=== PATIENT | female | born 1980 | race Caucasian/White ===

== ENCOUNTER → 2018-06-05 14:25 | Outpatient (CLI) | payer OTHER, MEDICAID, SELFPAY ==
[2018-06-05 15:06] LABS: Add Manual Diff / Slide Review NO; Basophils Percent Auto 0.7 % (0-2); Hematocrit 37.9 % (36-46); Hemoglobin 13.5 g/dL (12.0-16.0); Lymphocytes Percent Auto 23.4 % (25-40); Mean Corpuscular HGB Conc 35.7 % (30-36); Monocytes Percent Auto 5.7 % (3-14); Neutrophils Absolute Auto 7100 /uL (3000-5900); Neutrophils Percent Auto 69.2 % (50-75); Platelet Count 341 X10^3/uL (150-400); Red Blood Cell Count 4.35 X10^6/uL (4.0-5.2); Red Cell Distribution Width 12.6 % (11.6-14.8); White Blood Cell Count 10.3 X10^3/uL (4.5-11.0)
[2018-06-05 15:09] LABS: Appearance Urine UA CLEAR; Bilirubin Urine UA NEGATIVE (NEGATIVE); Color Urine UA YELLOW; Glucose Urine UA NEGATIVE (Normal); Ketones Urine UA 1+ (NEGATIVE); Leukocyte Esterase Urine UA TRACE (NEGATIVE); Nitrite Urine UA Negative (Negative); Occult Blood Urine UA NEGATIVE (Negative); Protein Urine UA NEGATIVE (Negative); Specific Gravity Urine UA 1.015 (1.000-1.035); Urobilinogen Urine UA 0.2 E.U./dL (0.2)
[2018-06-05 15:19] LABS: Bacteria Urine None Seen; RBC Urine None Seen (0-5/HPF)
[2018-06-05 15:23] LABS: Squamous Epithelial Cell Urine 10-30 /HPF; WBC Urine 5-10/HPF (0-5/HPF)
[2018-06-05 16:23] LABS: HIV 1 and 2 Antibody NEGATIVE (NEGATIVE); Hep C Virus Ab w/Reflex Quant NEGATIVE s/c (NEGATIVE); Hepatitis B Surface Antigen NEGATIVE s/c (NEGATIVE)
[2018-06-09 14:17] LABS: HSV1IGG < 0.90 index (< 0.90)
[2018-06-12 08:00] LABS: Rapid Plasma Reagin NON-REACTIVE
== END ==
PROVIDERS: PCP Nurse Practitioner Family; Visit Provider Obstetrics & Gynecology
DX: Z3A.14 14 weeks gestation of pregnancy (principal); Z34.01 Encounter for supervision of normal first pregnancy, first trimester
CPT/HCPCS: 36415; 80055; 81003; 81015; 86695; 86696; 86703; 86787; 86803; 86850; 86900; 86901; 87077; 87086

== ENCOUNTER → 2018-08-21 13:24 | Outpatient (CLI) | payer OTHER, SELFPAY ==
--- NOTE | 2018-08-21 13:25 | DI.US.S_ITS ---
PROCEDURE: US OB >= 14 WEEKS FETUS INDICATIONS: ANATOMY OUTSIDE/PRIOR DATING DATA: Last menstrual period (LMP): 02/25/18. LMP-based estimated date of delivery (LUIS FERNANDO): 12/02/18. First dating scan (date and location): 06/12/18. Estimated date of delivery (LUIS FERNANDO) from first dating scan: 01/04/19. TECHNIQUE: Real-time scanning was performed of the fetus, with image documentation and biometric measurements. Endovaginal scanning: No COMPARISON: [facility], , OB >= 14 WEEKS FETUS, 06/12/2018, 16:01. FINDINGS: General: A single living intrauterine gestation is present. Presentation: Breech. Placenta: Placental position is anterior, without previa. Amniotic fluid index: 13.6 cm, normal range is 5-24 cm. heart rate: 150 beats per minute. Maternal cervical canal: 3.6 cm long. Normal lower limit is 2.5 cm. biometrics: Biparietal diameter: 21 weeks Head circumference: 20 weeks 3 days Abdominal circumference: 21 weeks 1 day Femur length: 20 weeks Estimated gestational age from initial scan: not applicable. Composite gestational age from present scan: 20 weeks 4 days Estimated weight and percentile: 367 g; 49 percentile Measurement variability for biometric dating: +/- 7 days from 14 weeks to 15 weeks 6 days gestation, +/- 10 days from 16 weeks to 21 weeks 6 days gestation, +/- 2 weeks from 22 weeks to 27 weeks 6 days gestation, +/- 3 weeks for 28 weeks gestation or later. weight reference: 4500 g or EFW >90/95% is considered macrosomia or large for gestational age. EFW <10% is small for gestational age. EFW 5% or less is considered intra-uterine growth restriction. Anatomic survey: Neuro: Ventricles are non-dilated at less than 10 mm. Cisterna magna is normal at 3-11 mm. Cerebellum is normal in size and morphology. Nuchal skin fold: Normal at less than 6 mm between 14-21 weeks gestational age. Face: Nose and lips, facial profile are normal. Spine: Not well-seen. Heart: 4-chambered heart is present, with normal ventricular outflow tracts. Diaphragm: Diaphragm is intact. Stomach: Left-sided stomach is present. Kidneys: No hydronephrosis. Normal is less than 5 mm in 2nd trimester, less than 7 mm in 3rd trimester. Cord: 3-vessel cord has orthotopic insertion. Bladder: Normal in size. Extremities: All 4 extremities identified. IMPRESSION: 1. Single living IUP with an estimated gestational age of 20 weeks 4 days. 2. spine not well seen; otherwise normal anatomy. Followup recommended. Dictated by: Michael ESCOBAR Interpreted: Anastasia Ochoa MD on 08/21/2018 at 15:12 Approved by: Anastasia Ochoa M.D. on 08/22/2018 at 9:40
== END ==
PROVIDERS: PCP Nurse Practitioner Family; Visit Provider Obstetrics & Gynecology
DX: Z34.02 Encounter for supervision of normal first pregnancy, second trimester (principal); Z36.89 Encounter for other specified antenatal screening; Z3A.20 20 weeks gestation of pregnancy
CPT/HCPCS: 76811

== ENCOUNTER → 2018-10-12 06:56 | Outpatient (CLI) | payer OTHER, SELFPAY ==
[2018-10-12 08:48] LABS: Hematocrit 35.7 % (36-46)
[2018-10-12 09:15] LABS: GTT (PREG) 1 Hour PP 50gm Dose 134 mg/dL (76-139)
== END ==
PROVIDERS: PCP Nurse Practitioner Family; Visit Provider Obstetrics & Gynecology
DX: Z34.02 Encounter for supervision of normal first pregnancy, second trimester (principal)
CPT/HCPCS: 36415; 82950; 85014; 85018

== ENCOUNTER 2018-10-26 12:52 | Observation (INO) | payer OTHER, SELFPAY ==
[2018-10-26 14:15] LABS: Appearance Urine UA CLEAR; Bilirubin Urine UA NEGATIVE (NEGATIVE); Color Urine UA YELLOW; Glucose Urine UA NEGATIVE (Negative); Ketones Urine UA TRACE (NEGATIVE); Leukocyte Esterase Urine UA NEGATIVE (NEGATIVE); Nitrite Urine UA NEGATIVE (Negative); Occult Blood Urine UA NEGATIVE (Negative); Protein Urine UA NEGATIVE (Negative); Urobilinogen Urine UA 0.2 E.U./dL (0.2); pH Urine UA 6.5 (4.5-8.0)
[2018-10-26] MEDS: CYCLOBENZAPRINE 5 MG TABLET PO (14:46)
== END 2018-10-26 14:50 | disposition home or self-care (01) ==
PROVIDERS: Admitting Provider Obstetrics & Gynecology; PCP Nurse Practitioner Family; Visit Provider Obstetrics & Gynecology
DX: O26.893 Other specified pregnancy related conditions, third trimester (principal); M54.9 Dorsalgia, unspecified; O16.3 Unspecified maternal hypertension, third trimester; Z3A.30 30 weeks gestation of pregnancy
CPT/HCPCS: 59025; 59050; 81003; G0378; G0379

== ENCOUNTER 2018-11-03 13:23 | Outpatient (CLI) | payer OTHER, SELFPAY | END 2018-11-03 14:34 | disposition home or self-care (01) | LOC: OB 11-05 16:52 | PROVIDERS: PCP Nurse Practitioner Family; Visit Provider Obstetrics & Gynecology | DX: O16.3 Unspecified maternal hypertension, third trimester (principal); M54.5 Low back pain; O99.333 Smoking (tobacco) complicating pregnancy, third trimester; Z3A.31 31 weeks gestation of pregnancy | CPT/HCPCS: 59025; G0378; G0379 ==

== ENCOUNTER → 2018-12-04 15:42 | Outpatient (CLI) | payer OTHER, SELFPAY ==
[2018-12-05 12:27] LABS: Strep Grp B PCR NEG for Grp B Strep
== END ==
PROVIDERS: PCP Nurse Practitioner Family; Visit Provider Obstetrics & Gynecology
DX: Z34.03 Encounter for supervision of normal first pregnancy, third trimester (principal)
CPT/HCPCS: 87653

== ENCOUNTER 2018-12-07 09:15 | Observation (INO) | payer OTHER, SELFPAY ==
[2018-12-07 09:28] LABS: Appearance Urine UA CLEAR; Bilirubin Urine UA NEGATIVE (NEGATIVE); Color Urine UA YELLOW; Glucose Urine UA NEGATIVE (Negative); Ketones Urine UA NEGATIVE (NEGATIVE); Leukocyte Esterase Urine UA TRACE (NEGATIVE); Nitrite Urine UA NEGATIVE (Negative); Occult Blood Urine UA NEGATIVE (Negative); Protein Urine UA NEGATIVE (Negative); RBC Urine None Seen (0-5/HPF); Specific Gravity Urine UA 1.015 (1.000-1.035); Urobilinogen Urine UA 0.2 E.U./dL (0.2); pH Urine UA 7.5 (4.5-8.0)
[2018-12-07 09:40] LABS: Bacteria Urine Few (2-10); Culture Indicated Urine Cult Not Indicated; Squamous Epithelial Cell Urine 5-10 /HPF; WBC Urine 1-5/HPF (0-5/HPF)
[2018-12-07] MEDS: MORPHINE 10 MG/ML INJ IM (10:07)
== END 2018-12-07 11:30 | disposition home or self-care (01) ==
PROVIDERS: Admitting Provider Obstetrics & Gynecology; PCP Nurse Practitioner Family; Visit Provider Obstetrics & Gynecology
DX: O16.3 Unspecified maternal hypertension, third trimester (principal); G43.909 Migraine, unspecified, not intractable, without status migrainosus; R10.2 Pelvic and perineal pain
CPT/HCPCS: 59025; 59050; 81001; G0378; G0379; J2270

== ENCOUNTER 2018-12-15 16:14 | Outpatient (CLI) | payer OTHER, MEDICAID, SELFPAY | END 2018-12-15 16:53 | disposition home or self-care (01) | LOC: OB 12-17 10:33 | PROVIDERS: PCP Nurse Practitioner Family; Visit Provider Obstetrics & Gynecology | DX: O36.8130 Decreased fetal movements, third trimester, not applicable or unspecified (principal); Z3A.37 37 weeks gestation of pregnancy; O16.3 Unspecified maternal hypertension, third trimester | CPT/HCPCS: 59025; G0378; G0379 ==

== ENCOUNTER 2018-12-21 10:57 | Outpatient (CLI) | payer OTHER, MEDICAID, SELFPAY ==
--- NOTE | 2018-12-21 14:41 | PM.OBTRLD ---
Visit Information Visit Information Date of evaluation: 12/21/18 Primary OB Provider: Dominique Calderon Reason for Evaluation: Yes non-stress test non-stress test reason: decreased movement PFSH Medical History Bipolar disorder (Chronic) PTSD (post-traumatic stress disorder) (Chronic) Surgical History Status post rhinoplasty (Resolved) Social History Smoking Status: Current every day smoker Social History Smoking Status: Current every day smoker Evaluation Evaluation Baseline heart rate: 140 Variability: Moderate (11-25) monitor accelerations: Present monitor decelerations: Absent Contraction Frequency (minutes): 5 Uterine Contraction Intensity: Mild Category of Tracing: I Cervical dilation (cm): 0 Cervical effacement (%): 75 station: -1 Diagnosis, Plan/Disposition Final Diagnosis (1) Decreased movement affecting management of mother, antepartum: Current Visit: No Status: Acute (2) 37 weeks gestation of : Current Visit: No Status: Acute Plan/Disposition Plan: Discharge to home Follow up 12/22/18 as scheduled for routine OB visit kick counts explained
== END 2018-12-21 11:55 | disposition home or self-care (01) ==
LOC: LABOR 11:08 → OB 12-22 12:39
PROVIDERS: PCP Nurse Practitioner Family; Visit Provider Obstetrics & Gynecology
DX: O36.8130 Decreased fetal movements, third trimester, not applicable or unspecified (principal); Z3A.37 37 weeks gestation of pregnancy
CPT/HCPCS: 59025; G0378; G0379

== ENCOUNTER 2018-12-27 17:01 | Observation (INO) | payer OTHER, SELFPAY ==
[2018-12-27 18:26] VITALS: BP 136/86
[2018-12-27 18:29] LABS: Add Manual Diff / Slide Review NO; Basophils Absolute Auto 100 /uL (0-100); Basophils Percent Auto 0.7 % (0-2); Eosinophils Absolute Auto 100 /uL (0-450); Eosinophils Percent Auto 0.8 % (2-4); Hematocrit 38.4 % (36-46); Hemoglobin 12.8 g/dL (12.0-16.0); Lymphocytes Absolute Auto 2200 /uL (1100-4500); Lymphocytes Percent Auto 19.3 % (25-40); Mean Corpuscular HGB Conc 33.5 % (30-36); Mean Corpuscular Hemoglobin 29.6 PG (26-34); Mean Corpuscular Volume 88.5 fL (80-100); Monocytes Absolute Auto 800 /uL (0-900); Monocytes Percent Auto 6.5 % (3-14); Neutrophils Absolute Auto 8400 /uL (1500-7000); Neutrophils Percent Auto 72.7 % (50-75); Platelet Count 290 X10^3/uL (150-400); Red Blood Cell Count 4.34 X10^6/uL (4.0-5.2); Red Cell Distribution Width 12.9 % (11.6-14.8); White Blood Cell Count 11.5 X10^3/uL (4.5-11.0)
[2018-12-27] MEDS: miSOPROStol 25 MCG TABLET VAG (18:42)
[2018-12-28] MEDS: miSOPROStol 25 MCG TABLET VAG ×3 (03:31→13:49)
== END 2018-12-28 15:48 | disposition home or self-care (01) ==
PROVIDERS: Admitting Provider Obstetrics & Gynecology; PCP Nurse Practitioner Family; Visit Provider Obstetrics & Gynecology
DX: Z34.03 Encounter for supervision of normal first pregnancy, third trimester (principal); Z3A.33 33 weeks gestation of pregnancy
CPT/HCPCS: 59025; 59050; 59200; 85025; 86850; 86900; 86901; 96360; G0378; G0379

== ENCOUNTER 2019-01-05 12:20 | Inpatient (IN) | payer OTHER, MEDICAID, SELFPAY ==
--- NOTE | 2019-01-05 13:28 | PM.PREOP ---
Pre-operative Note Interval Note History & Physical reviewed/Exam performed by Physician: Yes Changes to H&P: No
[2019-01-05] MEDS: DEXTROSE 5%-LACTATED RINGERS 1,000 ML 100 ML IV (16:53)
[2019-01-05] MEDS: diphenhydrAMINE 50 MG/ML VIAL 25 MG IV ×2 (16:55→19:59)
[2019-01-05] MEDS: OXYCODONE/ACETAMINOPHEN 5/325 TABLET 1 TAB PO (17:06)
[2019-01-05] MEDS: OXYCODONE/ACETAMINOPHEN 5/325 TABLET 2 TAB PO (17:49)
[2019-01-05] MEDS: KETOROLAC 30 MG/ML VIAL IV (19:59)
[2019-01-05 21:29] VITALS: BP 156/85
[2019-01-05] MEDS: LABETALOL 100 MG TABLET PO (22:00)
--- NOTE | 2019-01-05 22:56 | PM.GYNOP.1 ---
Operative Date/Time/Diagnoses Date of procedure: 01/05/19 Time of procedure: 14:30 Pre-op diagnosis: 40 weeks gestation Gestational hypertension Failed induction of labor Bipolar disorder Post-op diagnosis: same Procedure: Primary low-transverse section Indications: 40 weeks gestation Gestational hypertension Bipolar disorder Failed induction of labor Surgeon: Dominique Calderon Anesthesia Type: Spinal (With Duramorph) Operative Notes Findings: Live male infant in the vertex presentation Normal uterus, tubes, and ovaries Closure Type: primary Specimen(s): other (Cord bloods, placenta) Applied: catheter Estimated blood loss (mL): 400 Blood products transfused: none Procedure in detail: The patient was taken to the operating room where she was placed in the seated position. Spinal anesthesia was administered. She was then placed in the dorsal supine position with a leftward tilt. She was prepped and draped in the usual sterile fashion. A timeout was performed. After spinal analgesia was found to be adequate, a Pfannenstiel skin incision was made 2 fingerbreadths above the pubic symphysis and carried through to the underlying layer fascia. The fascia was nicked in the midline, and the incision extended bilaterally with the Bills scissors. The superior aspect of the fascial incision was grasped with a Daisha clamps, elevated, and the underlying rectus muscles dissected off sharply and bluntly. Attention was then turned to the inferior aspect of this incision which in a similar fashion was grasped with a Daisha clamps, elevated, and the underlying rectus muscles dissected off sharply and bluntly. The rectus muscles were in the midline. The peritoneum was identified, grasped between 2 hemostats, and entered sharply with the Metzenbaum scissors. This incision was extended superiorly and inferiorly with good visualization of the bladder. The bladder blade was inserted. The pelvic inlet was found to be very narrow. The bladder blade could not seat. The vesicouterine peritoneum was identified, grasped with the pickup, and entered sharply with the Metzenbaum scissors. This incision was extended bilaterally, and the bladder flap was created digitally. The bladder blade was reinserted. The lower uterine segment was incised in a transverse fashion with the scalpel. Upon entering the amniotic sac there was a small amount of clear amniotic fluid. The infant's head was delivered without difficulty. The remainder of the body delivered without difficulty. The nose and mouth were suctioned with bulb suction. The cord was double clamped and cut. The was handed off to waiting RN and RT. The placenta was delivered manually. The uterus was cleared of all clots and debris. The uterine incision was repaired with #1 chromic in a running interlocking fashion, and a second layer the same suture was used for an imbricating layer. Hemostasis was achieved. The tubes and ovaries were examined and were found to be normal. The gutters were cleared of all clots and debris. The bladder flap was reapproximated using 2-0 Vicryl in a running fashion. The parietal peritoneum was closed using 2-0 Vicryl in a running fashion. The fascia was reapproximated using 0 Vicryl in a running fashion. Subcutaneous layer was copiously irrigated with warm normal saline. 6 simple interrupted sutures of 3-0 Vicryl were placed to reapproximate the subcutaneous layer. The skin was closed with 4-0 undyed Vicryl in a subcuticular fashion. Steri-Strips were placed. An Aquacel dressing was placed. The uterus was expressed of a small amount of old blood. Sponge, lap, and instrument counts were correct x-2. The patient tolerated the procedure well, and was taken to PACU in stable condition. Complications: none Post-operative Condition: stable Disposition: PACU Plan for aftercare: To Center after recovery
--- NOTE | 2019-01-05 23:15 | P.HPOB_ITS ---
OB HPI Date/Time Date of admission: 01/05/19 Date Patient Seen: 01/05/19 Time Patient Seen: 07:40 History of Present Condition Chief complaint: : 2 Para: 0 Estimated Date of Delivery: 01/04/19 Estimated Gestational Age (weeks): 40+1 Narrative: Griselda Vasquez is a 38 year old female 2 para 0 at 40-,1/7 weeks gestation who presented last evening for a 2nd trial at cervical ripening. She received 3 doses of Cytotec 1 week ago without any cervical change. She received 1 dose of Cytotec last night. Indications Indication for induction OB: post dates and maternal discomfort (Bipolar disorder) Operative indications ( section): elective History of Present care: good care, initiated at week # (15), number of visits (10) and pounds weight gain (20) Dating criteria: based on 1st trimester US only Ultrasounds: normal 1st trimester US and normal mid trimester US Obstetrical complications: gestational hypertension Medical complications: psychiatric (Bipolar disorder) Preadmission Labs Blood type: O (+) positive -: Antibody screen: negative, GBS status: negative, HBsAG: negative, HIV: negative, HSV 1: negative, HSV 2: positive and RPR/VDLR: negative -: Chlamydia screen: not detected and Gonorrhea screen: not detected -: Rubella: immune and Varicella: immune HCT: 35.7 HCAB: negative PAP: Normal (BV) Urine: Negative 1 hr GTT: 134 Evaluation Evaluation Baseline heart rate: 130 Variability: Moderate (11-25) monitor accelerations: Present monitor decelerations: Absent Contraction Frequency (minutes): 10 Uterine Contraction Intensity: Mild Category of Tracing: I Cervical dilation (cm): 1 Cervical effacement (%): 60 station: -1 COUNT INCLUDES THE [facility] Medical History (Updated 12/21/18 @ 14:44 by Dominique Calderon MD) Bipolar disorder (Chronic) PTSD (post-traumatic stress disorder) (Chronic) Surgical History (Updated 06/01/18 @ 11:17 by Alyssa De La Garza) Status post rhinoplasty (Resolved) Social History Smoking Status: Current every day smoker Social History Smoking Status: Current every day smoker Meds Home Medications Medication Instructions Recorded Confirmed Type quetiapine [Seroquel XR] 150 mg PO DAILY #0 08/16/16 01/04/19 History vitamins no.106-iron 27.5 1 cap PO DAILY 08/14/18 01/04/19 History mg-folate no.6 1 mg-dha capsule divalproex ER 500 mg 125 mg PO BID #0 tab 09/18/18 01/04/19 History tablet,extended release 24 hr labetalol 100 mg tablet 100 mg PO BID #60 tab 09/18/18 01/04/19 Rx lurasidone 40 mg tablet 60 mg PO DAILY tab 09/18/18 01/04/19 History valacyclovir 500 mg tablet 500 mg PO DAILY #30 tab 12/07/18 01/04/19 Rx Allergies Allergy/AdvReac Type Severity Reaction Status Date / Time amoxicillin [AMOXICILLIN] Allergy Unknown Rash Verified 12/27/18 18:12 ciprofloxacin [CIPROFLOXACIN] Allergy Unknown Rash Verified 12/27/18 18:12 Penicillins [PENICILLINS] Allergy Unknown Rash Verified 12/27/18 18:12 Exam Vital Signs (past 8 hours): Generally: A well-developed, well-nourished white female, in moderate distress Lungs: Clear to auscultation bilaterally Cardiovascular: Regular rate and rhythm Abdomen: Good bowel sounds Fundal height: 39 cm Extremities: Trace edema, negative Homans Assessment and Plan Assessment and Plan Assessment and Plan narrative: Assessment: 38-year-old 2 para 0 at 40-,1/7 weeks gestation with failed cervical ripening x2 Patient with bipolar disorder and very anxious about no progress Gestational hypertension Patient requesting primary section Plan: Primary low transverse section The risks, benefits, and alternatives to the procedure were explained to the patient. The risks including bleeding, infection, injury to the bowel, bladder, or ureters. She understands these risks and agrees to proceed. A full PAR-Q was held and consent form was signed. Time Spent with Patient Total time spent with greater than 50% in coordination of care (as documented) at patient's floor/unit and/or counseling patient:: 15-24 minutes
[2019-01-06] MEDS: KETOROLAC 30 MG/ML VIAL IV ×2 (01:56→08:11)
[2019-01-06] MEDS: OXYCODONE/ACETAMINOPHEN 5/325 TABLET 1 TAB PO ×5 (02:01→19:44)
[2019-01-06] MEDS: IBUPROFEN 600 MG TABLET PO ×2 (02:05→19:59)
[2019-01-06] MEDS: DOCUSATE 250 MG CAPSULE PO (09:40)
[2019-01-06] MEDS: PRENATAL VIT,CALC/IRON/FOLIC 1 TABLET 1 TAB PO (09:40)
[2019-01-06] MEDS: LABETALOL 100 MG TABLET PO ×2 (09:41→21:05)
[2019-01-06] MEDS: DIVALPROEX 125 MG CAP PO ×2 (09:41→21:54)
[2019-01-06 21:05] VITALS: BP 172/91; PULSE 86
[2019-01-06] MEDS: LURASIDONE 60 MG 60 EACH PO (21:53)
[2019-01-06] MEDS: QUETIAPINE 100 MG 100 EACH PO (21:53)
[2019-01-07] MEDS: IBUPROFEN 600 MG TABLET PO (03:41)
[2019-01-07] MEDS: OXYCODONE/ACETAMINOPHEN 5/325 TABLET 1 TAB PO (03:41)
[2019-01-07 06:55] LABS: Hematocrit 34.6 % (36-46); Hemoglobin 11.7 g/dL (12.0-16.0)
[2019-01-07 09:49] VITALS: BP 172/91; PULSE 86; RESP 18; TEMP 36.9
--- NOTE | 2019-01-08 12:40 | CM.SWNOTE ---
Social Work Note: This LEAD SOFTWARE ARCHITECT requested for social work consult to do additional safety screen and resource referral, for this 38 yo, first time mom, C section performed by Dr Calderon 01.05.19. Mom Griselda w/dx of Bipolar disorder and PTSD. Baby boy Vasquez going through w/d symptoms from mom's use of seroquel. According to conversation w/HIPOLITO Feldman; RONNY, Eliu, has been very supportive and at bedside. He has been the primary cg of baby in the room, bottle feeding and changing diapers. Mom does not seem confident about how to care for baby. Dr requested SW consult after Mom became hysterical over the idea of baby staying an additional night to monitor w/d symptoms. Baby boy overall doing well, weight gain and w/d symptoms being monitored very closely. Met w/ mom Griselda and Dad Eliu in , baby boy Ramsey sleeping in bassinet, quiet most of our visit but does startle w/ sneezes, louder noises and touch; jittery as per Dr Vital's notes. No concern from this LEAD SOFTWARE ARCHITECT re: the interaction between Eliu and Griselda, both make good eye contact and seem to be forthcoming w/information. Family Plan Upon DC: Griselda and Eliu are very concerned today about living off of Eliu's income for the 3 months she will be off work (no PTO), they explain they will not qualify for WIC and Griselda does not have health insurance for 3 months. Griselda and Eliu are discussing, w/this LEAD SOFTWARE ARCHITECT, what they will do about Griselda's job, their need for medical insurance, support from WIC, and childcare. They state they have been talking about this a lot. 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 This will allow her to apply and qualify for state insurance and WIC. Griselda wants to stay home w/Zayden. This does not solve the income question of how to live on Eliu's income (?) This LEAD SOFTWARE ARCHITECT asks if Griselda feels confident about being home w/baby boy? Griselda explains she will feel less anxious being home w/Zayden than placing him in daycare. Eliu works realtime court reporter and has his own insurance, he makes approx. $18 hourly. Viji are not . Griselda and Eliu live w/Eliu's 78 yo mother who has made herself available to help w/baby. She helps w/ cost of utilities. Griselda has placed a call to her Psychiatrist, MELISSA Patino at [facility] in [facility]# [phone], to discuss medications and ask if she needs to remain on Seroquel? Griselda takes Seroquel nightly before bed but states it knocks me out and I need to be able to get up w/Zayden. Supports: Griselda and Eliu have a lot of family support. Griselda states her mom is available although has had a tough year and Eliu's mom is available. They have other extended family in [place], they also have neighbors on each side of them that are navy wives, have young children and have offered support as needed. Griselda knows where to go to apply for WIC and Medicaid coverage. They only have one car but can borrow Eliu's mom's car when needed for appointments, errands, etc. Eliu explains to this LEAD SOFTWARE ARCHITECT that Griselda is very stable on Latuda and Depakote, the Seroquel can likely be stopped if needed (?) They also have a dog at home that provides Griselda a great deal of support and helps calm Griselda in more anxious moments. Griselda admits she has been anxious and depressed while being admitted here and knows she has been emotionally labile. She wants to go home and be with her dog. Interventions: Viji seem to have a plan today to keep baby Ramsey and themselves stable and cared for. They do seem somewhat impulsive and juvenile to this LEAD SOFTWARE ARCHITECT and Griselda does not exhibit an emotional or physical kang to baby Ramsey at this time, but RONNY Eliu is very attentive and has ideas to keep mom and baby happy and healthy. Griselda and Eliu deny need for resources and Griselda explains she knows where the offices are for WIC and [facility] to apply for services. They have transportation available to Dr kowalski and feel they have food, clothing, halfway secured. This LEAD SOFTWARE ARCHITECT reviewed the s/sx of depression and strongly encouraged Griselda to be aware of increasing feelings of anxiousness, anger and/or sadness. Explained that anger or frustration is quite normal for new parents, especially when sleep deprived, and Griselda should never feel ashamed in asking for help if she has thoughts of hurting her baby and feels she might act on these thoughts. Griselda aware and understands. Reviewed above w/ Director Jennifer and agreed w/preparation for DC as planned by the staff. MARSHALL Chand
== END 2019-01-07 10:05 | disposition home or self-care (01) | DRG 788 ==
PROVIDERS: Admitting Provider Obstetrics & Gynecology; PCP Nurse Practitioner Family; Visit Provider Obstetrics & Gynecology
DX: O48.0 Post-term pregnancy (principal); O99.334 Smoking (tobacco) complicating childbirth; O99.344 Other mental disorders complicating childbirth; F31.9 Bipolar disorder, unspecified; Z3A.40 40 weeks gestation of pregnancy; Z37.0 Single live birth; O61.0 Failed medical induction of labor; O13.4 Gestational [pregnancy-induced] hypertension without significant proteinuria, complicating childbirth
CPT/HCPCS: 36415; 59050; 59200; 59510; 85014; 85018; 85025; 86850; 86900; 86901; J0690; J1100; J1200; J1885; J2175; J2274; J2590; J7121

== ENCOUNTER → 2019-08-30 09:04 | Outpatient (CLI) | payer OTHER, MEDICAID, SELFPAY ==
[2019-08-30 09:59] LABS: Alanine Aminotransferase 10 IU/L (<35); Albumin 4.5 g/dL (3.5-5.0); Albumin Globulin Ratio 1.7 (1.0-2.8); Alkaline Phosphatase 60 U/L (38-126); Aspartate Aminotransferase 20 IU/L (14-36); Bilirubin Total 0.7 mg/dL (0.2-1.3); Blood Urea Nitrogen 7 mg/dL (7-17); Calcium 9.7 mg/dL (8.4-10.2); Carbon Dioxide 28 mmol/L (22-32); Chloride 105 mmol/L (98-107); Cholesterol 154 mg/dL (140-199); Estimated Glomerular Filt Rate > 60.0 mL/min (>60); Globulin 2.6 g/dL (1.7-4.1); Glucose 96 mg/dL (70-100); HDL Cholesterol 36 mg/dL (40-60); HEMOLYSIS < 15 (0-50); LDL Cholesterol Calculated 88 mg/dL (<100); Potassium 4.6 mmol/L (3.4-5.1); Sodium 141 mmol/L (137-145); Total Protein 7.1 g/dL (6.3-8.2); Triglycerides 151 mg/dL (35-150)
[2019-08-30 10:16] LABS: Free T3, Triiodothyronine Free 4.24 pg/mL (2.77-5.27); Free T4, Direct Thyroxine 0.91 ng/dL (0.78-2.19)
[2019-08-30 10:30] LABS: Thyroid Stimulating Hormone 0.76 uIU/mL (0.47-4.68)
== END ==
PROVIDERS: PCP Nurse Practitioner; Visit Provider Nurse Practitioner
DX: Z00.00 Encounter for general adult medical examination without abnormal findings (principal); Z79.899 Other long term (current) drug therapy
CPT/HCPCS: 36415; 80053; 80061; 84439; 84443; 84481

== ENCOUNTER → 2021-01-01 12:59 | Outpatient (CLI) | payer OTHER, MEDICAID, SELFPAY ==
[2021-01-01 13:56] LABS: Add Manual Diff / Slide Review NO; Basophils Absolute Auto 0 /uL (0-100); Basophils Percent Auto 0.5 % (0-2); Eosinophils Absolute Auto 200 /uL (0-450); Eosinophils Percent Auto 2.3 % (2-4); Hematocrit 41.4 % (36-46); Hemoglobin 14.1 g/dL (12.0-16.0); Lymphocytes Absolute Auto 2600 /uL (1100-4500); Lymphocytes Percent Auto 30.4 % (25-40); Mean Corpuscular HGB Conc 34.1 % (30-36); Mean Corpuscular Hemoglobin 30.5 PG (26-34); Mean Corpuscular Volume 89.4 fL (80-100); Monocytes Absolute Auto 400 /uL (0-900); Monocytes Percent Auto 5.2 % (3-14); Neutrophils Absolute Auto 5200 /uL (1500-7000); Neutrophils Percent Auto 61.6 % (50-75); Platelet Count 264 X10^3/uL (150-400); Red Blood Cell Count 4.63 X10^6/uL (4.0-5.2); Red Cell Distribution Width 12.7 % (11.6-14.8); White Blood Cell Count 8.4 X10^3/uL (4.5-11.0)
[2021-01-01 14:15] LABS: Hemoglobin A1C% w Est Avg Glu 5.3 % (4.0-6.0)
[2021-01-01 14:50] LABS: Alanine Aminotransferase 10 IU/L (<35); Albumin 4.4 g/dL (3.5-5.0); Albumin Globulin Ratio 1.8 (1.0-2.8); Alkaline Phosphatase 49 U/L (38-126); Aspartate Aminotransferase 19 IU/L (14-36); BUN Creatinine Ratio 11.6 (6-22); Bilirubin Total 0.2 mg/dL (0.2-1.3); Blood Urea Nitrogen 8 mg/dL (7-17); Calcium 9.9 mg/dL (8.4-10.2); Carbon Dioxide 28 mmol/L (22-32); Chloride 99 mmol/L (98-107); Cholesterol 157 mg/dL (140-199); Estimated Glomerular Filt Rate > 60.0 mL/min (>60); Globulin 2.4 g/dL (1.7-4.1); Glucose 125 mg/dL (70-100); HDL Cholesterol 42 mg/dL (40-60); HEMOLYSIS < 15 (0-50); LDL Cholesterol Calculated 76 mg/dL (<100); Potassium 4.3 mmol/L (3.4-5.1); Sodium 137 mmol/L (137-145); Total Protein 6.8 g/dL (6.3-8.2); Triglycerides 193 mg/dL (35-150)
[2021-01-02 05:16] LABS: Valproic Acid (Depakene) Total 37 ug/mL (50-100)
== END ==
PROVIDERS: PCP Family Medicine; Referring Provider Nurse Practitioner Acute Care; Visit Provider Nurse Practitioner Acute Care
DX: F31.32 Bipolar disorder, current episode depressed, moderate (principal)
CPT/HCPCS: 36415; 80053; 80061; 80164; 83036; 85025

== ENCOUNTER 2022-01-16 15:06 | Emergency (ER) | payer OTHER, MEDICAID, SELFPAY ==
[2022-01-16 15:10] VITALS: BP 165/92; PULSE 156; RESP 18; TEMP 36.6; O2SAT 99; BMI 24.2
[2022-01-16 15:36] LABS: Add Manual Diff / Slide Review NO; Basophils Absolute Auto 100 /uL (0-100); Basophils Percent Auto 0.8 % (0-2); Eosinophils Absolute Auto 100 /uL (0-450); Eosinophils Percent Auto 0.8 % (2-4); Hematocrit 41.9 % (36-46); Hemoglobin 14.4 g/dL (12.0-16.0); Lymphocytes Absolute Auto 2500 /uL (1100-4500); Lymphocytes Percent Auto 22.9 % (25-40); Mean Corpuscular HGB Conc 34.3 % (30-36); Mean Corpuscular Hemoglobin 30.3 PG (26-34); Mean Corpuscular Volume 88.3 fL (80-100); Monocytes Absolute Auto 700 /uL (0-900); Monocytes Percent Auto 6.3 % (3-14); Neutrophils Absolute Auto 7600 /uL (1500-7000); Neutrophils Percent Auto 69.2 % (50-75); Platelet Count 334 X10^3/uL (150-400); Red Blood Cell Count 4.74 X10^6/uL (4.0-5.2); Red Cell Distribution Width 12.5 % (11.6-14.8)
[2022-01-16 15:46] LABS: Alanine Aminotransferase 12 IU/L (<35); Albumin Globulin Ratio 1.6 (1.0-2.8); Alkaline Phosphatase 62 U/L (38-126); Aspartate Aminotransferase 25 IU/L (14-36); BUN Creatinine Ratio 9.2 (6-22); Bilirubin Total 0.6 mg/dL (0.2-1.3); Blood Urea Nitrogen 6 mg/dL (7-17); Calcium 9.4 mg/dL (8.4-10.2); Carbon Dioxide 22 mmol/L (22-32); Chloride 103 mmol/L (98-107); Estimated Glomerular Filt Rate > 60.0 mL/min (>60); Globulin 3.2 g/dL (1.7-4.1); Glucose 123 mg/dL (70-100); HEMOLYSIS < 15 (0-50); Lipase 121 U/L (23-300); Potassium 3.6 mmol/L (3.4-5.1); Sodium 138 mmol/L (137-145); Total Protein 8.2 g/dL (6.3-8.2)
[2022-01-16 16:14] LABS: Bacteria Urine Occasional (0-1); Culture Indicated Urine Cult Not Indicated; RBC Urine 1-5/HPF (0-5/HPF); Squamous Epithelial Cell Urine 1-5 /HPF (0-5/HPF); WBC Urine 1-5/HPF (0-5/HPF)
--- NOTE | 2022-01-16 17:03 | DI.US.S_ITS ---
PROCEDURE: US ABDOMEN LIMITED INDICATIONS: RUQ and RLQ pain, primarily RUQ, r/o gallstone/cholecystitis TECHNIQUE: Real-time focused scanning was performed of the abdomen, with image documentation. COMPARISON: None. FINDINGS: The liver is normal in size and demonstrates no focal lesions. No findings of gallstones or sludge are seen. The gallbladder wall is not thickened, measuring 3 mm or less. No specific pericholecystic fluid is seen. The sonographic Arias sign is negative. There is no biliary dilatation, the common bile duct measures 3 mm. No significant pancreatic abnormality is seen on these images. The right kidney demonstrates normal size, without hydronephrosis. A 1.3 cm right kidney cyst is incidentally noted. IMPRESSION: The gallbladder demonstrates a normal sonographic appearance. No biliary dilatation is seen. Dictated by: William Palmer M.D. on 01/16/2022 at 17:02 Approved by: William Palmer M.D. on 01/16/2022 at 17:04
--- NOTE | 2022-01-16 17:05 | ED_ITS ---
HPI - Abdominal Pain <MELISSA Alston - Last Filed: 01/16/22 20:07> General Chief Complaint: Abdominal Pain Stated Complaint: abd pain, just foud out she's Time Seen by Provider: 01/16/22 16:38 Source: patient Mode of arrival: Ambulatory History of Present Illness HPI narrative: This is a 41-year-old female who presents to the emergency department for right upper quadrant pain and some right lower quadrant pain which she has had before but is worse today. She states that she just found out she is , approximately 6 weeks, last menstrual period was 12/11/2021. Patient has a history of bipolar, PTSD, currently on lamotrigine and sertraline, taking vitamin. She states that she has had dry heaving for the last few days in the mornings likely related to her . Patient states that she was having a panic attack in triage, her heart rate at that time was 156, currently it is 105 on the child monitor, patient appears much more calm. Patient has a upcoming appoint with Dr. Calderon in a week. Patient states that she had a bowel movement today, has not had a fever, has not had any shortness of breath, chest pain, diarrhea, vomiting, she states she was only dry heaving and nothing came up. Related Data Home Medications Medication Instructions Recorded Confirmed lamotrigine 100 mg tablet 100 mg PO DAILY 01/14/22 prenat.vits,ron,[id number] 1 tab PO DAILY 01/14/22 sertraline 100 mg tablet 100 mg PO DAILY 01/14/22 Previous Rx's Medication Instructions Recorded ondansetron 4 mg disintegrating 4 mg PO Q8H PRN #14 tab 01/16/22 tablet Allergies Allergy/AdvReac Type Severity Reaction Status Date / Time amoxicillin [AMOXICILLIN] Allergy Unknown Rash Verified 01/16/22 15:15 ciprofloxacin [CIPROFLOXACIN] Allergy Unknown Rash Verified 01/16/22 15:15 Penicillins [PENICILLINS] Allergy Unknown Rash Verified 01/16/22 15:15 Review of Systems <MELISSA Alston - Last Filed: 01/16/22 20:07> Review of Systems Narrative: General: denies fever, chills Head/Neck: denies headache, neck pain Eyes: denies visual changes, eye pain Cardio: denies chest pain, palpitations Respiratory: denies shortness of breath, cough GI: Right-sided abdominal pain, with nausea, dry heaving in the mornings, denies any vomiting, or diarrhea : denies dysuria, hematuria MSK: denies joint pain, muscle weakness Skin: denies rash, itching Neuro: denies numbness, tingling Patient History <MELISSA Alston - Last Filed: 01/16/22 20:07> Medical History Anxiety Bipolar disorder PTSD (post-traumatic stress disorder) Tobacco abuse Surgical History Status post rhinoplasty Social History Smoking Status: Current every day smoker Smoking Status: Current every day smoker alcohol intake frequency: 0-2 drinks per day Substance Use Type: does not use Exam <MELISSA Alston - Last Filed: 01/16/22 20:07> Narrative Exam Narrative: Independently reviewed vitals signs and nursing notes. General: Awake, alert, nontoxic, no cardiorespiratory distress Head/Neck: Atraumatic, neck full range of motion Eyes: EOMI, conjunctiva normal Nose: nares patent, no rhinorrhea Mouth/Throat: moist mucus membranes, no oral lesions Cardio: Regular rate and rhythm, no peripheral edema Respiratory: respirations unlabored without wheezing, stridor, or rales. No retractions. GI: Abdomen soft, mildly tender over right lower quadrant, more tender over right upper quadrant, no pelvic tenderness, no vaginal discharge, no CVA tenderness no abdominal distension MSK: Moves all extremities, neurovascularly intact Skin: Normal capillary refill, no rash Neuro: Normal speech and cognition, normal gait Initial Vital Signs Initial Vital Signs: Vital Signs Temperature 97.9 F 01/16/22 15:10 Pulse Rate 156 H 01/16/22 15:10 Respiratory Rate 18 01/16/22 15:10 Blood Pressure 165/92 H 01/16/22 15:10 Pulse Oximetry 99 01/16/22 15:10 <Shanique Mccabe DO - Last Filed: 01/17/22 07:00> Initial Vital Signs Initial Vital Signs: Vital Signs Temperature 97.9 F 01/16/22 15:10 Pulse Rate 156 H 01/16/22 15:10 Respiratory Rate 18 01/16/22 15:10 Blood Pressure 165/92 H 01/16/22 15:10 Pulse Oximetry 99 01/16/22 15:10 Course <MELISSA Alston - Last Filed: 01/16/22 20:07> Orders Ordered: Discontinued Medications Ondansetron HCl (Ondansetron 4 Mg Odt) 4 mg SL NOW ONE Stop: 01/16/22 17:06 Last Admin: 01/16/22 17:27 Dose: 4 mg Documented by: GINA Vital Signs Vital signs: Vital Signs - 8 hr 01/16/22 15:10 01/16/22 18:30 01/16/22 18:32 Temperature 97.9 F Pulse Rate 156 H 113 H 97 H Respiratory Rate 18 Blood Pressure 165/92 H Pulse Oximetry 99 <Shanique Mccabe DO - Last Filed: 01/17/22 07:00> Orders Ordered: Discontinued Medications Ondansetron HCl (Ondansetron 4 Mg Odt) 4 mg SL NOW ONE Stop: 01/16/22 17:06 Last Admin: 01/16/22 17:27 Dose: 4 mg Documented by: GINA Vital Signs Vital signs: Vital Signs - 8 hr 01/16/22 15:10 01/16/22 18:30 01/16/22 18:32 Temperature 97.9 F Pulse Rate 156 H 113 H 97 H Respiratory Rate 18 Blood Pressure 165/92 H Pulse Oximetry 99 MDM - Abdominal Pain <MELISSA Alston - Last Filed: 01/16/22 20:07> Lab Data Result diagrams: 01/16/22 15:22 01/16/22 15:22 Labs: Lab Results 01/16/22 01/16/22 01/16/22 Range/Units 15:22 15:22 15:22 WBC 11.0 (4.5-11.0) X10^3/uL RBC 4.74 (4.0-5.2) X10^6/uL Hgb 14.4 (12.0-16.0) g/dL Hct 41.9 (36-46) % MCV 88.3 (80-100) fL MCH 30.3 (26-34) PG MCHC 34.3 (30-36) % RDW 12.5 (11.6-14.8) % Plt Count 334 (150-400) X10^3/uL Neut % (Auto) 69.2 (50-75) % Lymph % (Auto) 22.9 L (25-40) % Hinds % (Auto) 6.3 (3-14) % Eos % (Auto) 0.8 L (2-4) % Baso % (Auto) 0.8 (0-2) % Neut # (Auto) 7600 H (8577-5956) /uL Lymph # (Auto) 2500 (3400-4874) /uL Hinds # (Auto) 700 (0-900) /uL Eos # (Auto) 100 (0-450) /uL Baso # (Auto) 100 (0-100) /uL Sodium 138 (137-145) mmol/L Potassium 3.6 (3.4-5.1) mmol/L Chloride 103 (98-107) mmol/L Carbon Dioxide 22 (22-32) mmol/L BUN 6 L (7-17) mg/dL Creatinine 0.65 (0.52-1.04) mg/dL Estimated GFR > 60.0 (>60) mL/min BUN/Creatinine Ratio 9.2 (6-22) Glucose 123 H (70-100) mg/dL Calcium 9.4 (8.4-10.2) mg/dL Total Bilirubin 0.6 (0.2-1.3) mg/dL AST 25 (14-36) IU/L ALT 12 (<35) IU/L Alkaline Phosphatase 62 (38-126) U/L Total Protein 8.2 (6.3-8.2) g/dL Albumin 5.0 (3.5-5.0) g/dL Globulin 3.2 (1.7-4.1) g/dL Albumin/Globulin Ratio 1.6 (1.0-2.8) Lipase 121 (23-300) U/L HCG, Quant mIU/mL Urine RBC 1-5/hpf (0-5/HPF) Urine WBC 1-5/hpf (0-5/HPF) Ur Squamous Epith Cells 1-5 /hpf (0-5/HPF) Urine Bacteria Occasional (0-1) (None) Ur Culture Indicated? Cult not indicated 01/16/22 Range/Units 15:22 WBC (4.5-11.0) X10^3/uL RBC (4.0-5.2) X10^6/uL Hgb (12.0-16.0) g/dL Hct (36-46) % MCV (80-100) fL MCH (26-34) PG MCHC (30-36) % RDW (11.6-14.8) % Plt Count (150-400) X10^3/uL Neut % (Auto) (50-75) % Lymph % (Auto) (25-40) % Hinds % (Auto) (3-14) % Eos % (Auto) (2-4) % Baso % (Auto) (0-2) % Neut # (Auto) (8890-3683) /uL Lymph # (Auto) (6195-0734) /uL Hinds # (Auto) (0-900) /uL Eos # (Auto) (0-450) /uL Baso # (Auto) (0-100) /uL Sodium (137-145) mmol/L Potassium (3.4-5.1) mmol/L Chloride (98-107) mmol/L Carbon Dioxide (22-32) mmol/L BUN (7-17) mg/dL Creatinine (0.52-1.04) mg/dL Estimated GFR (>60) mL/min BUN/Creatinine Ratio (6-22) Glucose (70-100) mg/dL Calcium (8.4-10.2) mg/dL Total Bilirubin (0.2-1.3) mg/dL AST (14-36) IU/L ALT (<35) IU/L Alkaline Phosphatase (38-126) U/L Total Protein (6.3-8.2) g/dL Albumin (3.5-5.0) g/dL Globulin (1.7-4.1) g/dL Albumin/Globulin Ratio (1.0-2.8) Lipase (23-300) U/L HCG, Quant 4334.6 mIU/mL Urine RBC (0-5/HPF) Urine WBC (0-5/HPF) Ur Squamous Epith Cells (0-5/HPF) Urine Bacteria (None) Ur Culture Indicated? Point of care testing: Point of Care Testing Test Results Positive Urine Dip Bedside Urine Glucose Negative Bedside Urine Bilirubin - Negative Bedside Urine Ketone + 15 Urine Specific Deep Water 1.020 Bedside Urine Occult Blood - Negative Bedside Urine pH 6 Bedside Urine Protein +/- 15 Bedside Urine Urobilinogen - Negative Bedside Urine Nitrite - Negative Bedside Urine Leukocytes - Negative Esterase Imaging Data US - abdomen: Radiologist's Impression: PROCEDURE: US ABDOMEN LIMITED ? INDICATIONS:? RUQ and RLQ pain, primarily RUQ, r/o gallstone/cholecystitis ? TECHNIQUE:? Real-time focused scanning was performed of the abdomen, with image document ation.? ? COMPARISON:? None. ? FINDINGS:? The liver is normal in size and demonstrates no focal lesions. ? No findings of gallstones or sludge are seen.? The gallbladder wall is not thickened, measuring 3 mm or less.? No specific pericholecystic fluid is seen.? The sonographic Arias sign is negative. ? There is no biliary dilatation, the common bile duct measures 3 mm.? ? No significant pancreatic abnormality is seen on these images.? ? The right kidney demonstrates normal size, without hydronephrosis.? A 1.3 cm right kidney cyst is incidentally noted. ? ? IMPRESSION:? The gallbladder demonstrates a normal sonographic appearance. No biliary dilatation is seen. ? ? Dictated by: William Palmer M.D. on 01/16/2022 at 17:02 ? ? Approved by: William Palmer M.D. on 01/16/2022 at 17:04 ? MDM Narrative Medical decision making narrative: This is a 41-year-old female who states she is 6 weeks , she is female with last menstrual period on 12/11/2021. She has an upcoming OB appointment with Dr. Calderon. She has a history of bipolar, PTSD, currently on lamotrigine, sertraline, vitamins. She presents to the emergency department for right upper quadrant pain she states that she has had before, it is burning and dull in nature. She states that it comes and goes in severity. She had a panic attack in triage and was quite tachycardic, her heart rate improved after she de-escalated, her heart rate came down to 105 rate. Patient is tremulous, states that she has frequent panic attacks. She denies any vaginal discharge, abdominal cramping, vaginal bleeding. Her hCG level today was 4334.6. Lab workup was reassuring, there is no leukocytosis although there is a left shift, her lipase is 121, white blood cells, blood, or significant bacteria. Recommend patient follow-up with Dr. Agudelo her next scheduled appointment. She can have her hCG drawn again at that time. Low suspicion for miscarriage as patient has not had any vaginal bleeding or cramping. Suspect this is a panic attack. Patient was given some resources, discussed safe coping mechanisms while , patient states her understanding, is comforted, and will follow-up with her doctors as needed. She was given a prescription for Zofran for hyperemesis gravidarum. Patient is appropriate and amenable to discharge home. Vital signs are stable on repeat examination is unremarkable. Patient has been informed of results. Patient has been given strict return to ER precautions for any new or worsening symptoms. Patient understands to follow up closely with outpatient providers as instructed. Patient understands plan and agrees to discharge home. All questions and concerns answered at this time. <Shanique Mccabe, DO - Last Filed: 01/17/22 07:00> Lab Data Labs: Lab Results 01/16/22 01/16/22 01/16/22 Range/Units 15:22 15:22 15:22 WBC 11.0 (4.5-11.0) X10^3/uL RBC 4.74 (4.0-5.2) X10^6/uL Hgb 14.4 (12.0-16.0) g/dL Hct 41.9 (36-46) % MCV 88.3 (80-100) fL MCH 30.3 (26-34) PG MCHC 34.3 (30-36) % RDW 12.5 (11.6-14.8) % Plt Count 334 (150-400) X10^3/uL Neut % (Auto) 69.2 (50-75) % Lymph % (Auto) 22.9 L (25-40) % Hinds % (Auto) 6.3 (3-14) % Eos % (Auto) 0.8 L (2-4) % Baso % (Auto) 0.8 (0-2) % Neut # (Auto) 7600 H (1745-1654) /uL Lymph # (Auto) 2500 (4432-1886) /uL Hinds # (Auto) 700 (0-900) /uL Eos # (Auto) 100 (0-450) /uL Baso # (Auto) 100 (0-100) /uL Sodium 138 (137-145) mmol/L Potassium 3.6 (3.4-5.1) mmol/L Chloride 103 (98-107) mmol/L Carbon Dioxide 22 (22-32) mmol/L BUN 6 L (7-17) mg/dL Creatinine 0.65 (0.52-1.04) mg/dL Estimated GFR > 60.0 (>60) mL/min BUN/Creatinine Ratio 9.2 (6-22) Glucose 123 H (70-100) mg/dL Calcium 9.4 (8.4-10.2) mg/dL Total Bilirubin 0.6 (0.2-1.3) mg/dL AST 25 (14-36) IU/L ALT 12 (<35) IU/L Alkaline Phosphatase 62 (38-126) U/L Total Protein 8.2 (6.3-8.2) g/dL Albumin 5.0 (3.5-5.0) g/dL Globulin 3.2 (1.7-4.1) g/dL Albumin/Globulin Ratio 1.6 (1.0-2.8) Lipase 121 (23-300) U/L HCG, Quant mIU/mL Urine RBC 1-5/hpf (0-5/HPF) Urine WBC 1-5/hpf (0-5/HPF) Ur Squamous Epith Cells 1-5 /hpf (0-5/HPF) Urine Bacteria Occasional (0-1) (None) Ur Culture Indicated? Cult not indicated 01/16/22 Range/Units 15:22 WBC (4.5-11.0) X10^3/uL RBC (4.0-5.2) X10^6/uL Hgb (12.0-16.0) g/dL Hct (36-46) % MCV (80-100) fL MCH (26-34) PG MCHC (30-36) % RDW (11.6-14.8) % Plt Count (150-400) X10^3/uL Neut % (Auto) (50-75) % Lymph % (Auto) (25-40) % Hinds % (Auto) (3-14) % Eos % (Auto) (2-4) % Baso % (Auto) (0-2) % Neut # (Auto) (1409-9267) /uL Lymph # (Auto) (5891-1777) /uL Hinds # (Auto) (0-900) /uL Eos # (Auto) (0-450) /uL Baso # (Auto) (0-100) /uL Sodium (137-145) mmol/L Potassium (3.4-5.1) mmol/L Chloride (98-107) mmol/L Carbon Dioxide (22-32) mmol/L BUN (7-17) mg/dL Creatinine (0.52-1.04) mg/dL Estimated GFR (>60) mL/min BUN/Creatinine Ratio (6-22) Glucose (70-100) mg/dL Calcium (8.4-10.2) mg/dL Total Bilirubin (0.2-1.3) mg/dL AST (14-36) IU/L ALT (<35) IU/L Alkaline Phosphatase (38-126) U/L Total Protein (6.3-8.2) g/dL Albumin (3.5-5.0) g/dL Globulin (1.7-4.1) g/dL Albumin/Globulin Ratio (1.0-2.8) Lipase (23-300) U/L HCG, Quant 4334.6 mIU/mL Urine RBC (0-5/HPF) Urine WBC (0-5/HPF) Ur Squamous Epith Cells (0-5/HPF) Urine Bacteria (None) Ur Culture Indicated? Point of care testing: Point of Care Testing Test Results Positive Urine Dip Bedside Urine Glucose Negative Bedside Urine Bilirubin - Negative Bedside Urine Ketone + 15 Urine Specific [place] 1.020 Bedside Urine Occult Blood - Negative Bedside Urine pH 6 Bedside Urine Protein +/- 15 Bedside Urine Urobilinogen - Negative Bedside Urine Nitrite - Negative Bedside Urine Leukocytes - Negative Esterase Discharge Plan Departure Patient Disposition: Home Clinical Impression: Panic attack, Hyperemesis arising during Abdominal pain Qualifiers: Abdominal location: right upper quadrant Qualified Code(s): R10.11 - Right upper quadrant pain Instructions: Panic Disorder, Anxiety Disorders, Acute Abdominal Pain Activity Restrictions/Additional Instructions: *You have been diagnosed with right upper quadrant pain which does not show any dangerous or abnormal problem on ultrasound. Your lab work is reassuring, no signs of infection, bleeding, or other concern. Your hCG level is 4334.6. No signs of pancreatitis, I have called Roque in to your pharmacy. For symptoms of panic or overwhelming anxiety, try your calm down methods of removing herself from the stressor, you may take some deep slow breaths and try and calm down your heart rate, choose your battles as best as you are able and prioritize your health. If you are feeling significantly panic, you may take 25 mg of Benadryl, or try Zofran to see if this helps improve your symptoms. Please call and schedule an appointment with her therapist to work through some of these coping strategies while your . Follow-up with Dr. Calderon, congratulations on your , you will be a great parent, I am sorry that mental health and do not always align very easily. Please return if you have any changes in your symptoms which are concerning. *What to do: *Please continue to take your regular medications as directed. [ x] New medication prescriptions sent to your pharmacy: [[facility] ] [ ] New medication written as a paper prescription [ ] No new medications given *Please follow up with your primary care provider in 2-3 days, call for an appointment. Let them know you were seen in the Emergency Department and that we asked that you be seen for follow-up. We will electronically transmit a record of today's note if your PCP is in our system *If you do not have a primary care provider please contact [phone] to establish care with one of the [facility] primary care providers. *Return to Emergency Department if you should have any new, worsening or concerning symptoms, such as [fever greater than 101F, chills, worsening pain, persistent vomiting or other bothersome symptoms] Prescriptions: New ondansetron 4 mg tablet,disintegrating 4 mg PO Q8H PRN (Reason: nausea and vomiting) Qty: 14 0RF No Action lamotrigine 100 mg tablet 100 mg PO DAILY 0RF sertraline 100 mg tablet 100 mg PO DAILY 0RF prenat.vits,ron,[id number] Tablet 1 tab PO DAILY 0RF Referrals: Dominique Calderon MD [Physician] - Jayne Garcia MD [Primary Care Provider] - <Shanique Mccabe DO - Last Filed: 01/17/22 07:00> Cosign ED Attending Cosignature Attestation: I was immediately available in the department for consultation. Documentation has been reviewed. I agree with assessment and plan.
[2022-01-16] MEDS: ONDANSETRON 4 MG ODT SL (17:27)
[2022-01-16 17:38] LABS: HCG Quantitative /Beta subunit 4334.6 mIU/mL
[2022-01-16 18:30] VITALS: PULSE 113
[2022-01-16 18:32] VITALS: PULSE 97
== END 2022-01-16 18:40 | disposition home or self-care (01) ==
PROVIDERS: Emergency Medicine; Emergency Provider Nurse Practitioner Critical Care Medicine; PCP Family Medicine
DX: O21.0 Mild hyperemesis gravidarum (principal); O26.891 Other specified pregnancy related conditions, first trimester; R10.11 Right upper quadrant pain; R10.31 Right lower quadrant pain; F41.0 Panic disorder [episodic paroxysmal anxiety]; Z3A.01 Less than 8 weeks gestation of pregnancy
CPT/HCPCS: 36415; 76705; 80053; 81003; 81015; 81025; 83690; 84702; 85025; 99284

== ENCOUNTER → 2022-02-21 17:39 | Outpatient (CLI) | payer OTHER, MEDICAID, SELFPAY ==
[2022-02-21 18:35] LABS: Add Manual Diff / Slide Review NO; Basophils Absolute Auto 0 /uL (0-100); Basophils Percent Auto 0.4 % (0-2); Eosinophils Absolute Auto 0 /uL (0-450); Eosinophils Percent Auto 0.3 % (2-4); Hematocrit 39.1 % (36-46); Hemoglobin 13.7 g/dL (12.0-16.0); Lymphocytes Absolute Auto 1000 /uL (1100-4500); Lymphocytes Percent Auto 8.4 % (25-40); Mean Corpuscular HGB Conc 34.9 % (30-36); Mean Corpuscular Hemoglobin 30.5 PG (26-34); Mean Corpuscular Volume 87.3 fL (80-100); Monocytes Absolute Auto 400 /uL (0-900); Monocytes Percent Auto 3.6 % (3-14); Neutrophils Absolute Auto 10000 /uL (1500-7000); Neutrophils Percent Auto 87.3 % (50-75); Platelet Count 287 X10^3/uL (150-400); Red Blood Cell Count 4.48 X10^6/uL (4.0-5.2); Red Cell Distribution Width 12.8 % (11.6-14.8); White Blood Cell Count 11.4 X10^3/uL (4.5-11.0)
[2022-02-21 18:42] LABS: Alanine Aminotransferase 19 IU/L (<35); Aspartate Aminotransferase 27 IU/L (14-36); BUN Creatinine Ratio 13.3 (6-22); Blood Urea Nitrogen 6 mg/dL (7-17); Estimated Glomerular Filt Rate > 60 mL/min (>60); Uric Acid 2.4 mg/dL (2.5-6.2)
[2022-02-21 19:15] LABS: Hepatitis B Surface Antigen NEGATIVE s/c (NEGATIVE)
[2022-02-21 19:36] LABS: HIV 1 & 2 Ab/Ag 4th Gen Combo NEGATIVE (NEGATIVE); Hep C Virus Ab w/Reflex Quant NEGATIVE s/c (NEGATIVE)
[2022-02-22 07:01] LABS: RPR Screen Non Reactive (Non Reactive)
[2022-02-22 09:16] LABS: Varicella IgG Antibody 1008 index (Immune >165)
== END ==
PROVIDERS: PCP Family Medicine; Referring Provider Obstetrics & Gynecology; Visit Provider Obstetrics & Gynecology
DX: Z34.81 Encounter for supervision of other normal pregnancy, first trimester (principal); Z3A.11 11 weeks gestation of pregnancy
CPT/HCPCS: 36415; 80055; 82565; 84450; 84460; 84520; 84550; 86787; 86803; 86850; 86900; 86901; 87389

== ENCOUNTER → 2022-03-26 08:58 | Outpatient (CLI) | payer OTHER, MEDICAID, SELFPAY ==
[2022-03-26 13:18] LABS: Appearance Urine UA SL CLOUDY; Bilirubin Urine UA NEGATIVE (NEGATIVE); Color Urine UA YELLOW; Glucose Urine UA NEGATIVE (Negative); Ketones Urine UA NEGATIVE (NEGATIVE); Leukocyte Esterase Urine UA NEGATIVE (NEGATIVE); Nitrite Urine UA NEGATIVE (Negative); Occult Blood Urine UA NEGATIVE (Negative); Protein Urine UA NEGATIVE (Negative); Urobilinogen Urine UA 0.2 E.U./dL (0.2)
[2022-03-26 13:20] LABS: pH Urine UA 6.5 (4.5-8.0)
[2022-03-26 13:59] LABS: Creatinine Urine Random 117.5 mg/dL; Protein (Total) Urine Random 5 mg/dL (0-12); Protein Creatinine Ratio Urine 0.04 GRAM/24H
[2022-03-27 20:06] LABS: AFP Value 30.4 ng/mL (.); Insulin Dep Diabetes No (.); OSBR Risk 1IN 10000 (.); Results Report (.); Test Results *Screen Negative* (.)
== END ==
PROVIDERS: PCP Family Medicine; Referring Provider Obstetrics & Gynecology; Visit Provider Obstetrics & Gynecology
DX: O13.9 Gestational [pregnancy-induced] hypertension without significant proteinuria, unspecified trimester (principal); Z3A.16 16 weeks gestation of pregnancy
CPT/HCPCS: 36415; 81003; 82105; 82570; 84156

== ENCOUNTER → 2022-04-26 07:19 | Outpatient (CLI) | payer OTHER, MEDICAID, SELFPAY ==
--- NOTE | 2022-04-26 07:20 | DI.US.S_ITS ---
PROCEDURE: US OB >= 14 WEEKS FETUS INDICATIONS: ANATOMY OUTSIDE/PRIOR DATING DATA: Last menstrual period (LMP): 12/04/2021. LMP-based estimated date of delivery (LUIS FERNANDO): 09/10/2022. First dating scan (date and location): 02/21/2022; Dr. Calderon. Estimated date of delivery (LUIS FERNANDO) from first dating scan: 09/16/2022. TECHNIQUE: Real-time scanning was performed of the fetus, with image documentation and biometric measurements. Endovaginal scanning: Not performed COMPARISON: [facility], , OB >= 14 WEEKS FETUS, 03/26/2022, 8:57. [facility], , OB <= 14 WEEKS FETUS, 02/21/2022, 17:31. FINDINGS: General: A single living intrauterine gestation is present. Presentation: Vertex. Placenta: Placental position is left frontal, low-lying. There inferior margin is 1.1 cm from the internal os. Amniotic fluid index: 21.4 cm, normal range is 5-24 cm. Single deepest vertical pocket is 6.0 cm. heart rate: 140 beats per minute. Maternal cervical canal: 3.8 cm long. Normal lower limit is 2.5 cm. biometrics: Biparietal diameter: 19 weeks 6 days Head circumference: 19 weeks 5 days Abdominal circumference: 19 weeks 0 day Femur length: 19 weeks 5 days Clinically estimated gestational age: 19 weeks 4 days Composite gestational age from present scan: 19 weeks 4 days Estimated weight and percentile: 288g; 33% Anatomic survey: Neuro: Ventricles are non-dilated at less than 10 mm. Cisterna magna is normal at 3-11 mm. Cerebellum is normal in size and morphology. Nuchal skin fold: Normal at less than 6 mm between 14-21 weeks gestational age. Face: Nose and lips, facial profile are normal. Spine: No evidence for spina bifida. Heart: 4-chambered heart is present, with normal ventricular outflow tracts. Diaphragm: Diaphragm is intact. Stomach: Left-sided stomach is present. Kidneys: No hydronephrosis. Normal is less than 5 mm in 2nd trimester, less than 7 mm in 3rd trimester. Cord: 3-vessel cord has orthotopic insertion. Bladder: Normal in size. Extremities: All 4 extremities identified. IMPRESSION: 1. A single living intrauterine gestation with appropriate interval growth. 2. Low-lying placenta measuring 1.1 cm from the internal os.\ 3. Normal anatomic survey. We strive to produce accurate, complete, and clear reports of imaging services. To assist us in improving patient care, this report was composed using standard report templates and voice recognition software. Therefore, it may contain abnormal punctuation, insertions and/or omissions. Occasional wrong-word or sound-alike substitutions may occur. Though we review the report and make efforts to correct it, we do recommend that the report be read carefully in proper context to recognize any text inaccuracies. Dictated by: Anastasia Ochoa M.D. on 04/26/2022 at 13:55 Approved by: Anastasia Ochoa M.D. on 04/26/2022 at 14:03
== END ==
PROVIDERS: PCP Family Medicine; Referring Provider Obstetrics & Gynecology; Visit Provider Obstetrics & Gynecology
DX: Z34.82 Encounter for supervision of other normal pregnancy, second trimester (principal); Z3A.20 20 weeks gestation of pregnancy
CPT/HCPCS: 76811; 87491; 87591

== ENCOUNTER → 2022-04-26 11:38 | Outpatient (ROUT) | payer OTHER, MEDICAID, SELFPAY ==
[2022-04-26 13:34] LABS: Urine N gonorrhoeae NOT DETECTED
[2022-04-26 13:41] LABS: Urine Chlamydia NOT DETECTED
== END ==
PROVIDERS: PCP Family Medicine; Visit Provider Obstetrics & Gynecology
DX: Z34.82 Encounter for supervision of other normal pregnancy, second trimester (principal); Z3A.20 20 weeks gestation of pregnancy
CPT/HCPCS: 87491; 87591

== ENCOUNTER → 2022-06-05 06:38 | Outpatient (CLI) | payer OTHER, MEDICAID, SELFPAY ==
[2022-06-05 09:17] LABS: Hemoglobin 12.5 g/dL (12.0-16.0)
[2022-06-05 09:30] LABS: GTT (PREG) 1 Hour PP 50gm Dose 138 mg/dL (76-139)
== END ==
PROVIDERS: Physician Assistant Medical; PCP Family Medicine; Referring Provider Obstetrics & Gynecology; Visit Provider Obstetrics & Gynecology
DX: Z34.82 Encounter for supervision of other normal pregnancy, second trimester (principal); Z3A.26 26 weeks gestation of pregnancy
CPT/HCPCS: 82950; 85014; 85018

== ENCOUNTER 2022-06-07 05:17 | Observation (INO) | payer OTHER, MEDICAID, SELFPAY ==
[2022-06-07 05:48] LABS: Appearance Urine UA CLEAR; Bilirubin Urine UA NEGATIVE (NEGATIVE); Color Urine UA YELLOW; Glucose Urine UA NEGATIVE (Negative); Ketones Urine UA NEGATIVE (NEGATIVE); Leukocyte Esterase Urine UA TRACE (NEGATIVE); Nitrite Urine UA NEGATIVE (Negative); Occult Blood Urine UA NEGATIVE (Negative); Protein Urine UA NEGATIVE (Negative); Urobilinogen Urine UA 0.2 E.U./dL (0.2)
--- NOTE | 2022-06-07 06:13 | DI.US.S_ITS ---
PROCEDURE: US OB LIMITED INDICATIONS: CRAMPING OUTSIDE/PRIOR DATING DATA: Last menstrual period (LMP): 11/14/2021. LMP-based estimated date of delivery (LUIS FERNANDO): 09/10/2022. First dating scan (date and location): 02/21/2022. Estimated date of delivery (LUIS FERNANDO) from first dating scan: 09/16/2022 The calculations are made using the working LUIS FERNANDO of 09/16/2022. TECHNIQUE: Real-time scanning was performed of the fetus, with image documentation. Endovaginal scanning: Not performed COMPARISON: None. FINDINGS: A single living intrauterine gestation is present. Presentation: Vertex. Placenta: Placental position is posterior, without previa. The placental edge is 1 centimeter from the internal cervical os. Amniotic fluid index: 10.5 cm, normal range is 5-24 cm. Single deepest vertical pocket is 4.1 cm. heart rate: 133 beats per minute. Maternal cervical canal: 3.8 cm long. Normal lower limit is 2.5 cm. Estimated gestational age from initial scan: 25 weeks 4 days. Estimated gestational age from the current scan: 25 weeks 4 days. Estimated weight 804 grams, 31st percentile. IMPRESSION: Single living intrauterine gestation with estimated ultrasound age of 25 weeks 4 days. Placental edge-cervical os distance is 1 centimeters similar to the prior study. Dictated by: David Rodriguez M.D. on 06/07/2022 at 8:24 Approved by: David Rodriguez M.D. on 06/07/2022 at 8:28
--- NOTE | 2022-06-07 06:17 | P.HPOB_ITS ---
OB HPI Date/Time Date of admission: 06/07/22 Date Patient Seen: 06/07/22 Time Patient Seen: 06:17 History of Present Condition Chief complaint: contractions LUIS FERNANDO Calculator Estimated Delivery Date Method Current WG Current Estimate 09/10/22 LMP (Uncertain) 26w 3d Other Estimates 09/16/22 Ultrasound #1 25w 4d 09/16/22 Ultrasound #2 25w 4d Estimated Gestational Age (weeks): 26+3 : 2 Para: 1 care: good care, initiated at week # (10), number of visits (4) and pounds weight gain (21) Dating criteria OB: LMP confirmed by 1st trimester US Ultrasounds: normal 1st trimester US and abnormal US findings Abnormal ultrasound findings: Low-lying placenta on anatomic survey Obstetrical complications: none Medical complications OB: cardiovascular Narrative: Chronic hypertension Preadmission Labs Last OB Lab Results: Blood Type O Positive 02/21/22 17:49 Antibody Screen Negative 02/21/22 17:49 Hematocrit 33.1 % (36-46) L 06/07/22 06:00 Hemoglobin 11.4 g/dL (12.0-16.0) L 06/07/22 06:00 Hepatitis B Surface Antigen Negative s/c (NEGATIVE) 02/21/22 17 :49 Hepatitis C Antibody Negative s/c (NEGATIVE) 02/21/22 17:49 Rubella Antibody 201.0 IU/mL (>15) 02/21/22 17:49 Varicella-Zoster IgG Antibody 1008 index (Immune >165) 02/21/22 17:49 Glucose 1 Hour 138 mg/dL (76-139) 06/05/22 08:28 Group B Streptococcus (PCR) Neg for grp b strep 12/04/18 15:42 -: Chlamydia screen: negative, Gonorrhea screen: negative and Urine: unknown -: PAP smear: Normal Genetic Screens: Cell-free DNA: Normal (normal female) and Alpha-fetoprotein: Normal External Labs -: Urine: unknown Prior (ies) Past Pregnancies Del. Date GA/Weeks Labor Lgth Wt Sex Route Outcome Anesthesia Place Delv Breastfeed Preg Comp Name 01/05/19 40 0 6 lb 14 oz Male live - full term spi nal IH 3 wks induced hyper- [place] Delivery Date: 01/05/19 Last Updated by: Kaur M Smith, R.N. Failed induction Evaluation Evaluation Baseline heart rate: 135 Variability: Average (6-10) monitor accelerations: Present Monitor Decelerations: Variable Contraction Frequency (minutes): 3 Uterine Contraction Intensity: Mild Category of Tracing: Appropriate for gestational age Status: Category ll Dilation (cm): 0 Effacement (%): 0 Dilation: Closed Consistency: firm [facility] Medical History Acute lymphadenitis, unspecified (12/01/03) Allergic rhinitis, unspecified (02/02/04) Allergies Anxiety (~2014) Anxiety state, unspecified (02/02/04) Bipolar disorder (~2014) Chicken pox Conjunctivitis (10/25/04) Depression (~2014) Dermatitis, unspecified (11/09/03) Eczema Generalized anxiety disorder (01/03/04) Hypertension affecting Insomnia (01/03/04) Knee pain (09/13/03) Onychia of toe (02/08/04) Other disorder of muscle, ligament, and fascia (08/22/03) 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) PTSD (post-traumatic stress disorder) (~2005) Tobacco abuse Surgical History Anesthesia History of (~01/05/19) History of dilatation and curettage (~2006) Status post rhinoplasty Family History Father Diabetes mellitus Cardiac arrest due to other underlying condition AMD (age related macular degeneration) Hypertension Prostate cancer History of heart disease Hyperlipidemia Mother Pulmonary emboli Ovarian cancer Hypertension Mental health problem Grandmother Endometrial cancer Social History marital status: unmarried,living together number of children: 1 household members: significant other, family (grandma - 81 yrs) and children lives independently: Yes housing: house pets and animals: Yes (Dogs, fish, frog- Aware Toxoplasmosis) education level: high school occupational status: unemployed current occupational exposures/hazards: No special jesenia needs: No seatbelt use: always water heater temp set < 120 deg: Yes (will check) working smoke detector in home: Yes fire extinguisher in home: Yes carbon monox detector in home: Yes firearms in home: Yes firearms unloaded and locked: Yes do you feel safe at home: Yes Smoking Status: Current every day smoker (cutting back to quit) second hand exposure: No alcohol intake: former substance use type: former substance user and marijuana during the past year weight has: remained stable well-balanced diet: daily or most days daily servings fruits/ve-4 caffeine: Yes (aware of limit) Type(s) of exercise: irregular exercise Meds Home Medications and Allergies Home Medications Medication Instructions Recorded Confirmed Type lamotrigine 100 mg tablet 100 mg PO DAILY 01/14/22 05/21/22 History prenat.vits,ron,[id number] 1 tab PO DAILY 01/14/22 05/21/22 History sertraline 100 mg tablet 100 mg PO DAILY 01/14/22 05/21/22 History ondansetron 4 mg disintegrating 4 mg PO Q8H PRN nausea and 01/16/22 05/21/22 Rx tablet vomiting #14 tabs labetalol 100 mg tablet 100 mg PO BID #60 tabs 03/28/22 05/21/22 Rx Allergies Allergy/AdvReac Type Severity Reaction Status Date / Time amoxicillin [AMOXICILLIN] Allergy Unknown Rash Verified 05/21/22 09:18 ciprofloxacin [CIPROFLOXACIN] Allergy Unknown Rash Verified 05/21/22 09:18 Penicillins [PENICILLINS] Allergy Unknown Rash Verified 05/21/22 09:18 OB Exam Narrative Exam Narrative: Generally: Patient lying in bed, in moderate distress secondary to left lower quadrant pain. Lungs: Clear to auscultation bilaterally Cardiovascular: Regular rate and rhythm Fundal height: 25 cm Extremities: No edema Ultrasound: AGA 25 weeks 4 days. 31%ile. Placenta is posterior and low lying. ADAN normal. No uterine wall abnormalities. Objective Labs Result Diagrams: 06/07/22 06:00 Labs: Laboratory Results - last 24 hr 06/07/22 05:40 Urine Color Yellow Urine Appearance Clear Urine pH 7.0 Ur Specific [place] 1.020 Urine Protein Negative Urine Glucose (UA) Negative Urine Ketones Negative Urine Occult Blood Negative Urine Nitrate Negative Urine Bilirubin Negative Urine Urobilinogen 0.2 Ur Leukocyte Esterase Trace H Assessment and Plan Assessment and Plan Assessment and Plan narrative: Assessment: 41-year-old 2 para 1 at 26 weeks gestation with 1 day of cramping Left lower quadrant pain this morning Normal ultrasound with normal uterine wall Plan: IV fluid bolus Time Spent with Patient Total time spent with greater than 50% in coordination of care (as documented) at patient's floor/unit and/or counseling patient:: 25 - 35 minutes
[2022-06-07 06:28] LABS: Add Manual Diff / Slide Review NO; Basophils Absolute Auto 100 /uL (0-100); Basophils Percent Auto 0.8 % (0-2); Eosinophils Absolute Auto 100 /uL (0-450); Eosinophils Percent Auto 0.7 % (2-4); Hematocrit 33.1 % (36-46); Hemoglobin 11.4 g/dL (12.0-16.0); Lymphocytes Absolute Auto 1500 /uL (1100-4500); Mean Corpuscular HGB Conc 34.5 % (30-36); Mean Corpuscular Hemoglobin 30.7 PG (26-34); Mean Corpuscular Volume 89.1 fL (80-100); Monocytes Absolute Auto 800 /uL (0-900); Monocytes Percent Auto 5.7 % (3-14); Neutrophils Absolute Auto 12200 /uL (1500-7000); Neutrophils Percent Auto 82.8 % (50-75); Platelet Count 254 X10^3/uL (150-400); Red Blood Cell Count 3.72 X10^6/uL (4.0-5.2); Red Cell Distribution Width 12.6 % (11.6-14.8); White Blood Cell Count 14.7 X10^3/uL (4.5-11.0)
[2022-06-07 06:34] LABS: Bacteria Urine Moderate (10-30); RBC Urine 0-1/HPF (0-5/HPF); Squamous Epithelial Cell Urine 1-5 /HPF (0-5/HPF); WBC Urine 1-5/HPF (0-5/HPF)
[2022-06-07 06:35] LABS: Culture Indicated Urine Specimen Cultured
== END 2022-06-07 11:20 | disposition home or self-care (01) ==
PROVIDERS: Admitting Provider Obstetrics & Gynecology; PCP Family Medicine; Referring Provider Obstetrics & Gynecology; Visit Provider Obstetrics & Gynecology
DX: O47.02 False labor before 37 completed weeks of gestation, second trimester (principal); Z3A.26 26 weeks gestation of pregnancy
CPT/HCPCS: 59025; 59050; 76815; 76817; 81001; 85025; 86850; 86900; 86901; 87086; 96360; G0378; G0379

== ENCOUNTER 2022-08-05 13:17 | Observation (INO) | payer OTHER, MEDICAID, SELFPAY ==
[2022-08-05] MEDS: NIFEdipine 10 MG CAPSULE PO ×4 (13:46→14:59)
[2022-08-05] MEDS: TERBUTALINE 1 MG/ML VIAL 0.25 MG SUBCUT (15:29)
== END 2022-08-05 16:23 | disposition home or self-care (01) ==
PROVIDERS: Admitting Provider Obstetrics & Gynecology; PCP Family Medicine; Referring Provider Obstetrics & Gynecology; Visit Provider Obstetrics & Gynecology
DX: O60.03 Preterm labor without delivery, third trimester (principal); O13.3 Gestational [pregnancy-induced] hypertension without significant proteinuria, third trimester; O09.523 Supervision of elderly multigravida, third trimester; Z3A.37 37 weeks gestation of pregnancy
CPT/HCPCS: 59025; 59050; 96372; G0378; G0379

== ENCOUNTER 2022-08-09 18:22 | Outpatient (CLI) | payer OTHER, MEDICAID, SELFPAY ==
[2022-08-09] MEDS: NIFEdipine 10 MG CAPSULE PO ×3 (19:11→19:52)
[2022-08-09 20:19] LABS: Appearance Urine UA CLEAR; Bilirubin Urine UA NEGATIVE (NEGATIVE); Color Urine UA YELLOW; Glucose Urine UA NEGATIVE (Negative); Ketones Urine UA 3+ (NEGATIVE); Leukocyte Esterase Urine UA TRACE (NEGATIVE); Nitrite Urine UA NEGATIVE (Negative); Occult Blood Urine UA NEGATIVE (Negative); Protein Urine UA NEGATIVE (Negative); Urobilinogen Urine UA 0.2 E.U./dL (0.2)
[2022-08-09 20:29] LABS: Bacteria Urine Few (2-10); Calcium Oxalate Crystals Urine Occasional; Culture Indicated Urine Specimen Cultured; RBC Urine 0-1/HPF (0-5/HPF); Squamous Epithelial Cell Urine 1-5 /HPF (0-5/HPF); WBC Urine 1-5/HPF (0-5/HPF)
== END 2022-08-09 20:25 | disposition home or self-care (01) ==
LOC: OB 08-22 07:29
PROVIDERS: PCP Family Medicine; Referring Provider Obstetrics & Gynecology; Visit Provider Obstetrics & Gynecology
DX: O47.03 False labor before 37 completed weeks of gestation, third trimester (principal); O09.523 Supervision of elderly multigravida, third trimester; O99.333 Smoking (tobacco) complicating pregnancy, third trimester; F17.210 Nicotine dependence, cigarettes, uncomplicated; O13.3 Gestational [pregnancy-induced] hypertension without significant proteinuria, third trimester; Z3A.35 35 weeks gestation of pregnancy
CPT/HCPCS: 59025; 81001; 87086; G0378; G0379

== ENCOUNTER 2022-08-13 13:50 | Outpatient (CLI) | payer OTHER, MEDICAID, SELFPAY | END 2022-08-13 14:30 | disposition home or self-care (01) | LOC: OB 08-16 16:44 | PROVIDERS: PCP Family Medicine; Referring Provider Obstetrics & Gynecology; Visit Provider Obstetrics & Gynecology | DX: O13.3 Gestational [pregnancy-induced] hypertension without significant proteinuria, third trimester (principal); Z3A.35 35 weeks gestation of pregnancy; Z34.83 Encounter for supervision of other normal pregnancy, third trimester; Z3A.36 36 weeks gestation of pregnancy | CPT/HCPCS: 59025; 87186; 87653; G0378; G0379 ==

== ENCOUNTER → 2022-08-13 14:03 | Outpatient (CLI) | payer OTHER, MEDICAID, SELFPAY ==
[2022-08-14 15:04] LABS: Strep Grp B PCR POS for Grp B Strep
== END ==
PROVIDERS: PCP Family Medicine; Visit Provider Obstetrics & Gynecology
DX: Z34.83 Encounter for supervision of other normal pregnancy, third trimester (principal); Z3A.36 36 weeks gestation of pregnancy
CPT/HCPCS: 87186; 87653

== ENCOUNTER 2022-08-20 14:45 | Outpatient (CLI) | payer OTHER, MEDICAID, SELFPAY | END 2022-08-20 16:05 | disposition home or self-care (01) | LOC: LABOR 15:49 → OB 08-21 10:50 | PROVIDERS: PCP Family Medicine; Referring Provider Obstetrics & Gynecology; Visit Provider Obstetrics & Gynecology | DX: O13.3 Gestational [pregnancy-induced] hypertension without significant proteinuria, third trimester (principal); O09.523 Supervision of elderly multigravida, third trimester; Z3A.36 36 weeks gestation of pregnancy | CPT/HCPCS: 59025; G0378; G0379 ==

== ENCOUNTER 2022-08-22 09:45 | Inpatient (IN) | payer OTHER, MEDICAID, SELFPAY ==
--- NOTE | 2022-08-22 | PATH_ITS ---
[facility] Accession Number: [id number] . 01 Material submitted: . fallopian tube - BILATERAL FALLOPIAN TUBES . 01 Diagnosis: Bilateral Fallopian Tubes, Bilateral Salpingectomy: Bilateral fallopian tubes without significant diagnostic abnormalities. Negative for dysplasia and malignancy. MRV 08/26/2022 1332 Local . 01 Electronically signed: . Madi Wiggins MD, Pathologist NPI- [id number] . 01 Gross description: . The specimen is received in formalin, labeled with the patient's name, , and bilateral fallopian tubes, and consists of two unoriented fimbriated fallopian tubes measuring 8.4 x 1.0 cm and 6.5 x 1.0 cm, respectively. The longer fallopian tube has congested smooth serosa with no cystic structures identified. Sectioning reveals a congested stellate lumen. The shorter fallopian tube has smooth, congested serosa with no cystic structures identified. Sectioning reveals a congested stellate lumen. [employer]otional Sales sections to include one-half of the bisected fimbriae and sales solutions representative cross sections are submitted as follows: A1: Longer fallopian tube. A2: [place] fallopian tube. ([id number]) /FRR 08/24/2022 1723 Local . 01 Pathologist provided ICD-10: Z30.2, Z3A.39, Z98.891 . 01 CPT . 913890 Specimen Comment: A courtesy copy of this report has been sent to [phone] Performed at: 01 [facility] [address] [place] [address] [address], [place], [place] [id number] MD Carlo Mesa MD Phone: [phone]
[2022-08-22] MEDS: LACTATED RINGERS 1,000 ML 100 ML IV ×2 (11:27→16:11)
--- NOTE | 2022-08-22 11:48 | PM.OBHP.IH.1 ---
OB HPI Date/Time Date of admission: 08/22/22 Date Patient Seen: 08/22/22 History of Present Condition Chief complaint: C Section LUIS FERNANDO Calculator Estimated Delivery Date Method Current WG Current Estimate 09/10/22 LMP (Uncertain) 37w 2d Other Estimates 09/16/22 Ultrasound #1 36w 3d 09/16/22 Ultrasound #2 36w 3d Estimated Gestational Age (weeks): 37+2 : 2 Para: 1 care: good care, limited care, initiated at week # (11), number of visits (10) and pounds weight gain (22) Dating criteria OB: LMP confirmed by 1st trimester US Ultrasounds: normal 1st trimester US and normal mid trimester US Obstetrical complications: gestational hypertension and growth restriction Medical complications OB: none Indications Operative indications ( section): previous uterine surgery Preadmission Labs Last OB Lab Results: Blood Type O Positive 06/07/22 06:00 Antibody Screen Negative 06/07/22 06:00 Hematocrit 33.1 % (36-46) L 06/07/22 06:00 Hemoglobin 11.4 g/dL (12.0-16.0) L 06/07/22 06:00 Hepatitis B Surface Antigen Negative s/c (NEGATIVE) 02/21/22 17:49 Hepatitis C Antibody Negative s/c (NEGATIVE) 02/21/22 17:49 Rubella Antibody 201.0 IU/mL (>15) 02/21/22 17:49 Varicella-Zoster IgG Antibody 1008 index (Immune >165) 02/21/22 17:49 Glucose 1 Hour 138 mg/dL (76-139) 06/05/22 08:28 Group B Streptococcus (PCR) Pos for grp b strep H 08/13/22 14:03 -: Chlamydia screen: negative, Gonorrhea screen: negative and Urine: positive (GBS) -: PAP smear: Normal Genetic Screens: Cell-free DNA: Normal and Alpha-fetoprotein: Normal External Labs -: Urine: positive (GBS) Prior (ies) Past Pregnancies Del. Date GA/Weeks Labor Lgth Wt Sex Route Outcome Anesthesia Place Delv Breastfeed Preg Comp Name 01/05/19 40 0 6 lb 14 oz Male live - full term spinal IH 3 wks induced hyper- [place] Delivery Date: 01/05/19 Last Updated by: Kaur M Smith, R.N. Failed induction Evaluation Evaluation Baseline heart rate: 135 Variability: Moderate (11-25) monitor accelerations: Present Monitor Decelerations: Absent Status: Category l [facility] Medical History Acute lymphadenitis, unspecified (12/01/03) Allergic rhinitis, unspecified (02/02/04) Allergies Anxiety (~2014) Anxiety state, unspecified (02/02/04) Bipolar disorder (~2014) Chicken pox Conjunctivitis (10/25/04) Depression (~2014) Dermatitis, unspecified (11/09/03) Eczema Generalized anxiety disorder (01/03/04) Hypertension affecting Insomnia (01/03/04) Knee pain (09/13/03) Onychia of toe (02/08/04) Other disorder of muscle, ligament, and fascia (08/22/03) 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) PTSD (post-traumatic stress disorder) (~2005) Tobacco abuse Surgical History Anesthesia History of (~01/05/19) History of dilatation and curettage (~2006) Status post rhinoplasty Family History Father Diabetes mellitus Cardiac arrest due to other underlying condition AMD (age related macular degeneration) Hypertension Prostate cancer History of heart disease Hyperlipidemia Mother Pulmonary emboli Ovarian cancer Hypertension Mental health problem Grandmother Endometrial cancer Social History marital status: unmarried,living together number of children: 1 household members: significant other, family (grandma - 81 yrs) and children lives independently: Yes housing: house pets and animals: Yes (Dogs, fish, frog- Aware Toxoplasmosis) education level: high school occupational status: unemployed current occupational exposures/hazards: No special jesenia needs: No seatbelt use: always water heater temp set < 120 deg: Yes (will check) working smoke detector in home: Yes fire extinguisher in home: Yes carbon monox detector in home: Yes firearms in home: Yes firearms unloaded and locked: Yes do you feel safe at home: Yes Smoking Status: Current every day smoker (cutting back to quit) second hand exposure: No alcohol intake: former substance use type: former substance user and marijuana during the past year weight has: remained stable well-balanced diet: daily or most days daily servings fruits/ve-4 caffeine: Yes (aware of limit) Type(s) of exercise: irregular exercise Meds Home Medications and Allergies Home Medications Medication Instructions Recorded Confirmed Type lamotrigine 100 mg tablet 100 mg PO DAILY 01/14/22 08/22/22 History prenat.vits,ron,ivj-lbii-zusdk 1 tab PO DAILY 01/14/22 08/22/22 History sertraline 100 mg tablet 100 mg PO DAILY 01/14/22 08/22/22 History labetalol 100 mg tablet 100 mg PO BID #60 tabs 03/28/22 08/22/22 Rx ondansetron 4 mg disintegrating 4 mg PO Q8H PRN nausea and 08/09/22 08/22/22 Rx tablet vomiting #20 tabs Allergies Allergy/AdvReac Type Severity Reaction Status Date / Time ciprofloxacin [CIPROFLOXACIN] Allergy Intermediate Rash Verified 08/22/22 10:16 Penicillins [PENICILLINS] Allergy Unknown Rash Verified 08/20/22 14:18 amoxicillin [AMOXICILLIN] AdvReac Intermediate Rash Verified 08/22/22 10:15 OB Exam Narrative Exam Narrative: Generally: Patient is sitting up in bed, no acute distress Lungs: Clear to auscultation bilaterally Cardiovascular: Regular rate and rhythm Fundal height: 35 cm Estimated weight 5 1/2 lb Extremities: No edema Assessment and Plan Assessment and Plan Assessment and Plan narrative: Assessment: 42-year-old 2 para 1 at 37-,2/7 weeks gestation with gestational hypertension and growth restriction Desires permanent sterilization Plan: Repeat low-transverse section Bilateral salpingectomy The risks, benefits, and alternatives to the procedure were explained to the patient. The risks including bleeding, infection, injury to the bowel, bladder, or ureters. She understands these risks and agrees to proceed. A full par Q was held and consent form was signed. Time Spent with Patient Total time spent with greater than 50% in coordination of care (as documented) at patient's floor/unit and/or counseling patient:: 15-24 minutes
--- NOTE | 2022-08-22 11:54 | PM.PREOP ---
Pre-operative Note COVID-19 COVID-19 status: Negative Result date/Date tested (Pos, Neg/Pending): 08/22/22 Interval Note History & Physical reviewed/Exam performed by Physician: Yes Changes to H&P: No H&P completed within 30 days and has changed as indicated here:: 08/22/22
[2022-08-22 12:08] LABS: COVID19 -Nasal RAPID Negative (Negative)
--- NOTE | 2022-08-22 12:09 | SUR.OPER ---
Supine on Padded OR bed, head on pillow, safety belt at thigh, arms secured on padded arm boards at <90 degrees abduction. Bump under right buttock. Legs uncrossed with pillow under knees, gel pad to heels, tape over blanket to lower legs.
[2022-08-22] MEDS: CEFAZOLIN 2 GM/100 ML PREMIX 100 ML IV (12:50)
[2022-08-22 12:54] LABS: Add Manual Diff / Slide Review NO; Basophils Absolute Auto 100 /uL (0-100); Basophils Percent Auto 0.7 % (0-2); Eosinophils Absolute Auto 100 /uL (0-450); Eosinophils Percent Auto 0.6 % (2-4); Hematocrit 33.8 % (36-46); Hemoglobin 11.4 g/dL (12.0-16.0); Lymphocytes Absolute Auto 1900 /uL (1100-4500); Lymphocytes Percent Auto 14.7 % (25-40); Mean Corpuscular HGB Conc 33.8 % (30-36); Mean Corpuscular Hemoglobin 29.4 PG (26-34); Mean Corpuscular Volume 87.2 fL (80-100); Monocytes Absolute Auto 600 /uL (0-900); Monocytes Percent Auto 4.4 % (3-14); Neutrophils Absolute Auto 10400 /uL (1500-7000); Neutrophils Percent Auto 79.6 % (50-75); Platelet Count 298 X10^3/uL (150-400); Red Blood Cell Count 3.88 X10^6/uL (4.0-5.2)
--- NOTE | 2022-08-22 13:31 | SUR.OPER ---
Single live baby girl born at 1301. Pre procedure FHT 138. Placenta delivered at 1305. Placenta and cord blood sent with L&D RN Jessica.
[2022-08-22 13:52] VITALS: BP 136/67; PULSE 79; RESP 12; TEMP 36.1; O2SAT 100
[2022-08-22 13:56] VITALS: BP 146/77; PULSE 69; RESP 21; TEMP 36.6; O2SAT 100
[2022-08-22 14:02] VITALS: BP 146/80; PULSE 73; RESP 16; TEMP 36.6; O2SAT 100
[2022-08-22] MEDS: ONDANSETRON 4 MG/2 ML INJ IV (14:06)
[2022-08-22 14:07] VITALS: BP 139/77; PULSE 74; RESP 16; TEMP 36.3; O2SAT 99
[2022-08-22] MEDS: KETOROLAC 30 MG/ML VIAL IV ×2 (14:32→21:17)
[2022-08-22] MEDS: ACETAMINOPHEN 325 MG TABLET 650 MG PO ×2 (15:34→21:16)
[2022-08-22] MEDS: OXYCODONE IR 5 MG TABLET PO ×2 (15:35→16:58)
--- NOTE | 2022-08-22 17:38 | PM.OBCS.1 ---
Operative Date/Time/Diagnoses Date of procedure: 08/22/22 Time of procedure: 13:45 Pre-op diagnosis: 37+2 weeks gestation Previous C section Desires permanent sterilization growth restriction Gestational hypertension Post-op diagnosis: same Procedure & Clinicians Procedure: Repeat low-transverse section Bilateral salpingectomy Same procedure as scheduled: Yes Indications: 37+ 2 weeks' gestation Gestational hypertension growth restriction Desires permanent sterilization Surgeon: Dominique Correa Yes if Unassisted: No Field Cane Scaler: Faviola Jara Reason for Field Cane Scaler: Field Cane Scaler was necessary to retract upon entry into the abdomen and uterus. She assisted with fundal pressure on delivery of the . She assisted with retraction and clipping of suture upon closure of the abdomen and uterus. Anesthesia Type: Spinal (With Duramorph) Operative Notes Findings: Live female in the SULEIMAN presentation Bladder to uterine adhesions Normal tubes and ovaries Meconium-stained amniotic fluid Closure Type: primary Specimen(s): cord blood, placenta and tubes/segments of tubes Intraoperative meds administered: Duramorph, Ketorolac and Pitocin Applied: Catheter (To continuous drainage) Estimated Blood Loss (mL): 500 Blood products transfused: none Procedure in detail: The patient was taken to the operating room where she was placed in the seated position. Spinal anesthesia with Duramorph was administered. The patient was then placed in the dorsal supine position with a leftward tilt. She was prepped and draped in the usual sterile fashion. A timeout was performed. After spinal analgesia was found to be adequate, a Pfannenstiel skin incision was made through the previous incision and carried through to the underlying layer fascia. The fascia was nicked in the midline, and the incision extended bilaterally with the Bills scissors. The superior aspect of the fascial incision was grasped with a [place] clamps, elevated, and the underlying rectus muscles dissected off sharply and bluntly. Attention was then turned to the inferior aspect of this incision which in a similar fashion was grasped with a [place] clamps, elevated, and the underlying rectus muscles dissected off sharply and bluntly. The rectus muscles were in the midline. The peritoneum was identified, grasped between 2 hemostats, and entered sharply with the Metzenbaum scissors. This incision was extended superiorly and inferiorly with good visualization of the bladder. The bladder blade was inserted. There were adhesions between the bladder and the uterus. These were taken down sharply with the Metzenbaum scissors. The vesicouterine peritoneum was identified, grasped with the pickup, and entered sharply with the Metzenbaum scissors. This incision was extended bilaterally, and the bladder flap was created digitally. The bladder blade was reinserted. The lower uterine segment was incised in a transverse fashion with the scalpel. Upon entering the amniotic sac there was moderate amount of meconium-stained amniotic fluid. The 's head was delivered with vacuum assistance. The nose and mouth were suctioned with bulb suction. The remainder of the body delivered without difficulty. The cord was double clamped and cut after 1 minute. Cord bloods were obtained. The was handed off to waiting RN and RT. The placenta was delivered manually. The uterus was cleared of all clots and debris. The cervix was opened using dilators and a ring forcep. The uterine incision was repaired with #1 chromic in a running interlocking fashion, and a second layer the same suture was used for an imbricating layer. Hemostasis was achieved. The tubes and ovaries were examined and were found to be normal. The right tube was carried out to the fimbriated end. Using the LigaSure, the mesosalpinx was cauterized and cut all the way down to the cornua of the uterus. The tube was amputated at the cornua. This was repeated on the patient's left tube. The gutters were cleared of all clots and debris. The bladder flap was reapproximated using 2-0 Vicryl in a running fashion. The parietal peritoneum was closed using 2-0 Vicryl in a running fashion. The fascia was reapproximated using 0 Vicryl in a running fashion. The subcutaneous layer was copiously irrigated with warm normal saline. 5 simple interrupted sutures of 3-0 Vicryl were placed to reapproximate the subcutaneous layer. The skin was closed with 4-0 Monocryl in a subcuticular fashion. Steri-Strips were placed. An Aquacel dressing was placed. The uterus was expressed of a small amount of old blood. Sponge, lap, and instrument counts were correct x-2. The patient tolerated the procedure well, and was taken to PACU in stable condition. Complications: none Spearman Baby 1: Gender: Female Presentation: vertex Position: Left Occiput Anterior Placental Delivery Description: Expressed Cord Vessel Description: 3 Vessels score (1 min): 7 score (5 min): 8 weight: 4 lb 12 oz Post-operative Condition: stable Disposition: PACU Aftercare: routine postop
[2022-08-22] MEDS: OXYCODONE IR 10 MG TABLET PO (21:16)
[2022-08-22 21:32] VITALS: BP 136/70; PULSE 66
[2022-08-22] MEDS: LABETALOL 100 MG TABLET PO (21:32)
[2022-08-22 22:00] VITALS: BP 117/74; PULSE 66
[2022-08-23] MEDS: OXYCODONE IR 10 MG TABLET PO ×2 (01:01→05:04)
[2022-08-23] MEDS: KETOROLAC 30 MG/ML VIAL IV (03:19)
[2022-08-23] MEDS: ACETAMINOPHEN 325 MG TABLET 650 MG PO ×3 (03:20→16:42)
[2022-08-23 05:14] LABS: Add Manual Diff / Slide Review NO; Basophils Absolute Auto 100 /uL (0-100); Basophils Percent Auto 0.5 % (0-2); Eosinophils Absolute Auto 100 /uL (0-450); Hematocrit 30.8 % (36-46); Hemoglobin 10.5 g/dL (12.0-16.0); Lymphocytes Absolute Auto 1800 /uL (1100-4500); Lymphocytes Percent Auto 12.7 % (25-40); Mean Corpuscular Hemoglobin 29.4 PG (26-34); Mean Corpuscular Volume 86.5 fL (80-100); Monocytes Absolute Auto 700 /uL (0-900); Monocytes Percent Auto 5.1 % (3-14); Neutrophils Absolute Auto 11500 /uL (1500-7000); Neutrophils Percent Auto 80.7 % (50-75); Platelet Count 268 X10^3/uL (150-400); Red Blood Cell Count 3.56 X10^6/uL (4.0-5.2); Red Cell Distribution Width 13.2 % (11.6-14.8); White Blood Cell Count 14.3 X10^3/uL (4.5-11.0)
[2022-08-23] MEDS: IBUPROFEN 600 MG TABLET PO ×2 (09:20→16:42)
[2022-08-23] MEDS: DOCUSATE 100 MG CAPSULE 200 MG PO (09:20)
[2022-08-23] MEDS: SERTRALINE 50 MG TABLET 100 MG PO (09:21)
[2022-08-23 09:23] VITALS: BP 134/82
[2022-08-23] MEDS: LABETALOL 100 MG TABLET PO ×2 (09:23→21:11)
[2022-08-23] MEDS: lamoTRIgine 100 MG TABLET PO (09:33)
[2022-08-23 10:43] VITALS: BP 128/63
[2022-08-23] MEDS: hydrOXYzine pamoate 25 MG CAPSULE PO (14:14)
[2022-08-23 16:00] VITALS: BP 137/66; PULSE 82; RESP 17; TEMP 37.1
[2022-08-23 21:11] VITALS: BP 120/70; PULSE 70
[2022-08-24] MEDS: OXYCODONE IR 10 MG TABLET PO ×2 (01:14→09:26)
[2022-08-24] MEDS: IBUPROFEN 600 MG TABLET PO ×2 (01:14→09:26)
[2022-08-24] MEDS: ACETAMINOPHEN 325 MG TABLET 650 MG PO (01:15)
[2022-08-24] MEDS: DOCUSATE 100 MG CAPSULE 200 MG PO (09:24)
[2022-08-24] MEDS: SERTRALINE 50 MG TABLET 100 MG PO (09:25)
[2022-08-24 09:27] VITALS: BP 137/66; PULSE 82
[2022-08-24] MEDS: LABETALOL 100 MG TABLET PO (09:27)
[2022-08-24] MEDS: lamoTRIgine 100 MG TABLET PO (09:37)
--- NOTE | 2022-08-24 10:24 | PM.OBPN.1 ---
Subjective - OB Subjective Patient comments: other (emotional, hasn't slept) baby status: doing well and nursing well [place] feeding status: exclusively breast feeding Date Patient Seen: 08/23/22 Time Patient Seen: 12:30 Interval history: Postop day # 1 status post repeat low-transverse section and bilateral salpingectomy. Exam Vital Signs (past 8 hours): - 08/24/22 09:27 Pulse Rate 82 Blood Pressure 137/66 Oxygen Delivery Method Room Air Oxygen Flow Rate 0 Narrative Exam Narrative: Generally: Patient is sitting up in bed, holding , teary Lungs: Clear to auscultation bilaterally Cardiovascular: Regular rate and rhythm Fundus: Firm at U -3 Incision: Clean dry and intact with Aquacel dressing. Extremities: No edema, negative [place] Objective Labs Result Diagrams: 08/23/22 05:05 Assessment & Plan Plan day: 1 plan OB: routine postop care Comments: Hydroxyzine for anxiety/sleep Anticipate d/c 08/24/22 Time Spent With Patient Time: Total time spent is greater than 50% in coordination of care (as documented) at patient's floor/unit and/or counseling patient: Time with patient: less than 15 minutes
[2022-08-24 10:51] VITALS: BP 137/66; PULSE 82; RESP 16; TEMP 36.3
--- NOTE | 2022-08-24 16:42 | P.DS_ITS ---
Discharge Providers Provider Date of admission: 08/22/22 09:45 Discharge Date: 08/24/22 Primary care physician: Jayne Garcia MD Consults: 08/22/22 15:25 Consult to Ap Processor Routine Comment: Discharge provider: Dmoinique Calderon MD Summary Hospital Course Date Patient Seen: 08/24/22 Time Patient Seen: 11:15 Diagnoses: 37-2/7 weeks gestation Gestational hypertension Previous section Advanced maternal age Desires permanent sterilization. Hospital Course: Patient is a 42-year-old 2 para 2 who presented on August 22, 2022 for a scheduled repeat section and bilateral salpingectomy. She underwent these procedures without complication. Her postoperative course was unremarkable. She was discharged home on postop day #2. She was voiding without the catheter. Pain was well controlled. No nausea or v omiting. She was ambulating without assistance. Her bleeding was tapering. Peripartum Data Infant Delivery Method: Section (Repeat) Laceration Description: None Episiotomy description: None Procedures: Spinal anesthesia Repeat low-transverse section Bilateral salpingectomy complications: none [place] 1: Gender: Female Disposition of : home Status at Discharge Cognitive/behavioral status at discharge: oriented Functional status at discharge: independent ambulation Overall status at discharge: patient is progressing back to baseline Time Spent with Patient Time attestation: Total time spent providing and/or coordinating discharge services: Time spent: Less than 30 minutes Objective Labs Result Diagrams: 08/23/22 05:05 Exam Vital Signs (past 8 hours): - 08/24/22 09:27 08/24/22 10:51 Temperature 97.4 F L Pulse Rate 82 82 Respiratory Rate 16 Blood Pressure 137/66 137/66 Oxygen Delivery Method Room Air Oxygen Flow Rate 0 Narrative Exam Narrative: Generally: Patient is sitting up in bed, nursing infant, no acute distress Lungs: Clear to auscultation bilaterally Cardiovascular: Regular rate and rhythm Fundus: Firm at U -3 Incision: Clean dry and intact with Aquacel dressing. Extremities: No edema, negative Homans Discharge Plan Discharge Plan Patient Disposition: Home Provider Discharge Comment: Call with fever, chills, redness or drainage around the incision, or bleeding vaginally more than a pad in an hour Ibuprofen 600-800 mg every 6 hours Tylenol 650 mg every 6 hours Stool softeners needed Discharge orders & Medications Prescriptions: New oxycodone 5 mg tablet 5 mg PO Q4H PRN (Reason: pain) Qty: 20 0RF ibuprofen 800 mg tablet 800 mg PO TID PRN (Reason: pain) Qty: 30 2RF Continued lamotrigine 100 mg tablet 100 mg PO DAILY sertraline 100 mg tablet 100 mg PO DAILY prenat.vits,ron,[id number]-[id number] Tablet 1 tab PO DAILY labetalol 100 mg tablet 100 mg PO BID Qty: 60 4RF Discontinued ondansetron 4 mg tablet,disintegrating 4 mg PO Q8H PRN (Reason: nausea and vomiting) Qty: 20 2RF Follow up/Referrals: Dominique Calderon MD [Physician] - (My office will call on Friday to set up Aquacel dressing removal) Diet/Activity/Treatments Diet: Diet as Tolerated Activity: No heavy lifting Nothing in the vagina for 6 weeks Skin/Wound/Dressing Care Report to your healthcare provider any signs of infection, such as:: chills, fever, increased pain, unusual drainage and unusual redness Visit Report/Discharge Packet Instructions: DI for , DI for Prescription Opioid Use Stand Alone Forms: Discharge: Care Discharge Data Primary Care Provider: Jayne Garcia
== END 2022-08-24 11:30 | disposition home or self-care (01) | DRG 539 ==
PROVIDERS: Obstetrics & Gynecology; Admitting Provider Obstetrics & Gynecology; PCP Family Medicine; Referring Provider Obstetrics & Gynecology; Visit Provider Obstetrics & Gynecology
PROC: 10D00Z1 Extraction of Products of Conception, Low, Open Approach (ICD-10-PCS; CPT 59514; principal; 2022-08-22 11:30)
DX: O36.5930 Maternal care for other known or suspected poor fetal growth, third trimester, not applicable or unspecified (principal); O13.4 Gestational [pregnancy-induced] hypertension without significant proteinuria, complicating childbirth; Z3A.37 37 weeks gestation of pregnancy; Z37.0 Single live birth; Z30.2 Encounter for sterilization; O99.892 Other specified diseases and conditions complicating childbirth; N73.6 Female pelvic peritoneal adhesions (postinfective); O99.824 Streptococcus B carrier state complicating childbirth; Z20.822 Contact with and (suspected) exposure to COVID-19
CPT/HCPCS: 36415; 58611; 59050; 59514; 85025; 86850; 86900; 86901; 87635; C9803; J0690; J1885; J2405; J2590

== ENCOUNTER → 2023-05-05 07:06 | Outpatient (CLI) | payer OTHER, MEDICAID, SELFPAY ==
[2023-05-05 07:29] LABS: Hematocrit 38.3 % (36-46); Hemoglobin 13.2 g/dL (12.0-16.0); Mean Corpuscular HGB Conc 34.4 % (30-36); Mean Corpuscular Hemoglobin 29.8 PG (26-34); Mean Corpuscular Volume 86.7 fL (80-100); Platelet Count 297 X10^3/uL (150-400); Red Blood Cell Count 4.42 X10^6/uL (4.0-5.2); Red Cell Distribution Width 13.4 % (11.6-14.8); White Blood Cell Count 9.8 X10^3/uL (4.5-11.0)
[2023-05-05 07:44] LABS: Alanine Aminotransferase 18 IU/L (<35); Albumin Globulin Ratio 1.7 (1.0-2.8); Alkaline Phosphatase 58 U/L (38-126); Aspartate Aminotransferase 24 IU/L (14-36); BUN Creatinine Ratio 7.9 (6-22); Bilirubin Total 0.4 mg/dL (0.2-1.3); Blood Urea Nitrogen 5 mg/dL (7-17); Calcium 8.9 mg/dL (8.4-10.2); Carbon Dioxide 27 mmol/L (22-32); Chloride 102 mmol/L (98-107); Cholesterol 171 mg/dL (140-199); Estimated Glomerular Filt Rate > 60 mL/min (>60); Globulin 2.4 g/dL (1.7-4.1); Glucose 108 mg/dL (70-100); HDL Cholesterol 45 mg/dL (40-60); HEMOLYSIS < 15 (0-50); LDL Cholesterol Calculated 108 mg/dL (<100); Potassium 4.3 mmol/L (3.4-5.1); Sodium 136 mmol/L (137-145); Total Protein 6.4 g/dL (6.3-8.2); Triglycerides 90 mg/dL (35-150)
[2023-05-05 07:59] LABS: Free T3, Triiodothyronine Free 3.62 pg/mL (2.77-5.27); Free T4, Direct Thyroxine 0.87 ng/dL (0.78-2.19)
[2023-05-05 08:13] LABS: Thyroid Stimulating Hormone 0.626 uIU/mL (0.47-4.68)
[2023-05-05 10:37] LABS: Creatinine Urine Random 272.9 mg/dL
[2023-05-05 10:42] LABS: Microalbumi Creatinin Ratio Ur 9.8 ug/mg CR (<30); Microalbumin Urine Random 2.7 mg/dL (0-1.6)
[2023-05-05 16:57] LABS: HIV 1 & 2 Ab/Ag 4th Gen Combo NEGATIVE (NEGATIVE); Hep C Virus Ab w/Reflex Quant NEGATIVE s/c (NEGATIVE)
== END ==
PROVIDERS: PCP Nurse Practitioner; Referring Provider Nurse Practitioner; Visit Provider Nurse Practitioner
DX: Z00.00 Encounter for general adult medical examination without abnormal findings (principal); I10 Essential (primary) hypertension; Z11.4 Encounter for screening for human immunodeficiency virus [HIV]; Z11.59 Encounter for screening for other viral diseases
CPT/HCPCS: 36415; 80053; 80061; 82043; 82570; 84439; 84443; 84481; 85027; 86803; 87389

== ENCOUNTER → 2023-05-08 08:58 | Outpatient (CLI) | payer OTHER, MEDICAID, SELFPAY ==
--- NOTE | 2023-05-08 08:59 | DI.ECHO.S_ITS ---
[place] [facility]---------+ [facility] +---------+ : : [address] : : : : [phone] : : : : Phone: [phone] Echocardiogram Report + + :Name: DAVIS HDEZ Study Date: 05/08/2023 Height: 67 in : :[facility] ReadingLocation: Weight: 160 lb : : Gender: Female BSA: 1.8 m2 : :: 1980 Age: 42 yrs BP: 142/94 mmHg: :Reason For Study: HYPERTENSION : :Ordering Physician: ED, : :PEDRO Performed By: Dian Gallegos : :Referring: PEDRO WARD : + + Interpretation Summary The ejection fraction is estimated to be 50-55%. Diastolic parameters suggest probable normal left ventricular diastolic function and normal filling pressures. The right ventricle is normal in size and function. No significant valvular abnormalities. Pulmonary artery pressures cannot be estimated because of the lack of a measurable TR jet velocity. Procedure: A two-dimensional transthoracic echocardiogram with color flow and Doppler was performed. The study quality was technically adequate. There is no prior echocardiogram noted for this patient. The patient was in sinus rhythm with heart rates between 67-80 bpm during the exam. Left Ventricle: The left ventricle is normal in size and wall thickness. The ejection fraction is estimated to be 50-55%. Diastolic parameters suggest probable normal left ventricular diastolic function and normal filling pressures. Right Ventricle: The right ventricle is normal in size and function. Atria: The left atrial size is normal. Right atrial size is normal. There is no Doppler evidence for an interatrial shunt. Mitral Valve: The mitral valve is normal in structure and function. There is trace mitral regurgitation. Aortic Valve: The aortic valve is trileaflet. The aortic valve opens well. There is no aortic valve stenosis. No aortic regurgitation is present. Tricuspid Valve: The tricuspid valve is normal in structure and function. There is trace tricuspid regurgitation. Pulmonary artery pressures cannot be estimated because of the lack of a measurable TR jet velocity. Pulmonic Valve: The pulmonic valve leaflets are thin and pliable; valve motion is normal. There is trace pulmonic regurgitation. Great Vessels: The aortic root is normal size. The dimensions of the ascending aorta are normal. The IVC is dilated (diameter is greater than 2.1 cm) yet it collapses greater than 50% with a sniff. This suggests a right atrial pressure of 8 mm Hg. Pericardium/ Pleura There is no pericardial effusion. There is no pleural effusion. MMode/2D Measurements & Calculations LVIDd: 4.8 cm LVOT diam: 2.1 cm LVIDs: 3.4 cm Ao root diam: 2.9 cm FS: 27.9 % asc Aorta Diam: 2.6 cm EPSS: 0.26 cm Ao Arch Diam (Prox Trans): 2.3 cm IVSd: 0.65 cm LVPWd: 0.83 cm LV varma. diameter/BSA (cm/m^2): 2.6 LV sys. diameter/BSA (cm/m^2): 1.9 LA A2 area: 14.4 cm2 RA long axis: 4.2 cm LA A4 area: 9.7 cm2 RA area: 11.3 cm2 LA length (vol): 3.7 cm RA vol: 25.8 ml LA vol: 32.1 ml RA : 14.0 ml/m2 LA vol index: 17.5 ml/m2 IVC diam: 2.3 cm RVD1 (basal): 3.0 cm RVD2 (mid): 2.9 cm TAPSE: 1.8 cm Doppler Measurements & Calculations Ao V2 max: 123.1 cm/sec LVOT Max Brady: 87.5 cm/sec Ao V2 mean: 88.0 cm/sec LV V1 max P.1 mmHg Ao max P.1 mmHg LV V1 VTI: 16.5 cm Ao mean P.4 mmHg J CARLOS(I,D): 2.3 cm2 Ao V2 VTI: 24.1 cm J CARLOS(V,D): 2.4 cm2 sev ratio: 0.69 J CARLOS indexed to BSA (cm^2/m^2): 1.2 MV E max brady: 79.0 cm/sec PA V2 max: 95.3 cm/sec MV A max brady: 63.7 cm/sec PA V2 mean: 65.2 cm/sec MV E/A: 1.2 PA mean P.0 mmHg Med Peak E' Brady: 11.0 cm/sec PA pr(Accel): 31.0 mmHg E/E' med: 7.2 Lat Peak E' Brady: 15.4 cm/sec E/E' lat: 5.1 E/e' average: 6.2 MV dec time: 0.21 sec SVLVOT): 54.8 ml Reading Physician:06:56 PM
--- NOTE | 2023-05-08 08:59 | DI.MG.S_ITS ---
BILATERAL DIGITAL SCREENING MAMMOGRAM 3D/2D WITH CAD: 05/08/2023 CLINICAL: Routine screening. Baseline exam. No prior exams were available for comparison. Both breasts are heterogeneously dense, which may obscure small masses (category c / 51-75% glandular tissue). Current study was also evaluated with a Computer Aided Detection (CAD) system. There are benign vascular calcifications in the left breast. No significant masses, calcifications, or other findings are seen in either breast. IMPRESSION: BENIGN There is no mammographic evidence of malignancy. A 1 year screening mammogram is recommended. Based on the Tyrer Cuzick model (a risk assessment model) the patient's lifetime risk is 16.8% and her 10 year risk is 2.2%. According to the ACR, ACS, and NCCN guidelines, an annual breast MRI exam along with mammogram is recommended if the patient's lifetime risk is 20% or greater. This exam was interpreted at Station ID: [id number]. NOTE: For mammograms, a report in lay terms will be sent to the patient. Approximately 15% of breast malignancies will not be visualized mammographically. In the management of a palpable breast mass, a negative mammogram must not discourage biopsy of a clinically suspicious lesion. Electronically Signed By: Jovon allen/yair:05/08/2023 15:44:20 letter sent: Normal Exam ACR BI-RADS Category 2: Benign Finding(s) 3342F
== END ==
PROVIDERS: PCP Nurse Practitioner; Referring Provider Nurse Practitioner; Visit Provider Nurse Practitioner
DX: Z12.31 Encounter for screening mammogram for malignant neoplasm of breast (principal); I10 Essential (primary) hypertension
CPT/HCPCS: 77063; 77067; 93306

== ENCOUNTER 2023-06-12 06:33 | Day surgery (SDC) | payer OTHER, MEDICAID, SELFPAY ==
[2023-06-05 16:30] VITALS: BMI 25.8
[2023-06-12] VITALS (8 sets, daily range): BP systolic 91–154; BP diastolic 41–95; PULSE 70–90; RESP 10–20; TEMP 36.4; O2SAT 92–98; BMI 23.5
[2023-06-12] MEDS: LACTATED RINGERS 1,000 ML 100 ML IV ×2 (06:58→08:59)
--- NOTE | 2023-06-12 07:09 | P.HPOB_ITS ---
History of Present Illness History of Present Illness Reason for admission: vaginal bleeding (Heavy) Narrative: Griselda Vasquez is a 42 year old female 2 para 2 who presents for a D&C hysteroscopy and NovaSure endometrial ablation due to menorrhagia. [facility] Medical History Acute lymphadenitis, unspecified (12/01/03) Allergic rhinitis, unspecified (02/02/04) Allergies Anxiety (~2014) Anxiety state, unspecified (02/02/04) Bipolar disorder (~2014) Chicken pox Conjunctivitis (10/25/04) Depression (~2014) Dermatitis, unspecified (11/09/03) Eczema (~1981) Generalized anxiety disorder (01/03/04) Hypertension affecting Insomnia (01/03/04) Knee pain (09/13/03) Onychia of toe (02/08/04) Other disorder of muscle, ligament, and fascia (08/22/03) 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) PTSD (post-traumatic stress disorder) (~2005) Tobacco abuse Tobacco use disorder Surgical History (Updated 05/01/23 @ 21:21 by Loreto Dunaway) Anesthesia History of (~01/05/19) History of section (~2021) History of dilatation and curettage (~2006) Status post rhinoplasty Family History (Updated 05/01/23 @ 21:24 by Loreto Dunaway) Father Diabetes mellitus Cardiac arrest due to other underlying condition AMD (age related macular degeneration) Hypertension Prostate cancer History of heart disease Hyperlipidemia Mother Pulmonary emboli Ovarian cancer Hypertension Mental health problem Diabetes mellitus Hyperlipidemia Grandmother Endometrial cancer Grandfather Suicide Grandfather Cancer Social History marital status: unmarried,living together number of children: 1 household members: significant other, family and children lives independently: Yes housing: house pets and animals: Yes (Dogs, fish, frog- Aware Toxoplasmosis) education level: high school occupational status: unemployed current occupational exposures/hazards: No special jesenia needs: No seatbelt use: always water heater temp set < 120 deg: Yes (will check) working smoke detector in home: Yes fire extinguisher in home: Yes carbon monox detector in home: Yes firearms in home: Yes firearms unloaded and locked: Yes do you feel safe at home: Yes Smoking Status: Current every day smoker second hand exposure: No alcohol intake: former substance use type: former substance user and marijuana during the past year weight has: remained stable well-balanced diet: daily or most days daily servings fruits/ve-4 caffeine: Yes (aware of limit) Type(s) of exercise: irregular exercise Meds Home Medications and Allergies Home Medications Medication Instructions Recorded Confirmed Type lamotrigine 100 mg tablet 100 mg PO DAILY 01/14/22 06/12/23 History cholecalciferol (vitamin D3) 125 125 mcg PO DAILY 04/23/23 06/12/23 History mcg (5,000 unit) capsule clonazepam 0.5 mg tablet 0.5 mg PO DAILY PRN anxiety 04/23/23 06/12/23 History pyridoxine (vitamin B6) 100 mg 100 mg PO DAILY 04/23/23 06/12/23 History tablet sertraline 100 mg tablet 150 mg PO DAILY 04/23/23 06/12/23 History omeprazole 20 mg capsule,delayed 20 mg PO BID #180 caps 05/16/23 06/12/23 Rx release varenicline 1 mg tablet (Chantix 1 mg PO BID #56 tabs 05/16/23 06/12/23 Rx Continuing Month Box) Allergies Allergy/AdvReac Type Severity Reaction Status Date / Time ciprofloxacin [CIPROFLOXACIN] Allergy Intermediate Shakiness Verified 06/12/23 07:05 Penicillins [PENICILLINS] Allergy Unknown Rash Verified 06/12/23 07:05 amoxicillin [AMOXICILLIN] AdvReac Intermediate Rash Verified 06/12/23 07:05 Exam Narrative Exam Narrative: HEENT: No thyromegaly, no anterior cervical or supraclavicular lymphadenopathy. Lungs:Clear to auscultation bilaterally, no wheezes. Cardiovascular: Regular rate and rhythm, no murmurs, rubs, or gallops. Abdomen: Well-healed Pfannenstiel scars. No hepatosplenomegaly. No masses palpable. External genitalia: Normal Vagina: Normal Cervix: Normal Bimanual exam: 7 Week size uterus. Mobile. Extremities: No edema Assessment & Plan Assessment & Plan narrative: Assessment: 42-year-old 2 para 2 with menorrhagia Plan: D&C hysteroscopy with NovaSure endometrial ablation The risks, benefits, and alternatives to the procedure were explained to the patient. The risks including bleeding, infection, and uterine perforation. She understands these risks and agrees to proceed. A full par Q was held and consent form was signed. Time Spent With Patient Time with patient: less than 30 minutes
--- NOTE | 2023-06-12 07:20 | PM.PREOP ---
Pre-operative Note COVID-19 Criteria for continued procedure: Non-surgical alternatives not available or appropriate per current SOC Interval Note History & Physical reviewed/Exam performed by Physician: Yes Changes to H&P: No H&P completed within 30 days and has changed as indicated here:: 06/12/23
--- NOTE | 2023-06-12 08:11 | SUR.OPER ---
Lithotomy on padded OR bed, head on pillow, arms secured on padded arm boards at <90 degrees abduction. Legs secured in padded yellow fins stirrups.
--- NOTE | 2023-06-12 08:47 | P.OP_ITS ---
Operative Date/Time/Diagnoses Date of procedure: 06/12/23 Time of procedure: 08:47 Pre-op diagnosis: Menorrhagia Patient not a candidate for hormonal therapy Post-op diagnosis: same Procedure & Clinicians Procedure: Procedures Operation Date: 06/12/23 07:45 Actual Procedure Side Surgeon p Hysteroscopy w/ Endometrial Ablation Dominique Claderon MD Indications: 42-year-old 2 para 2 with menorrhagia Patient has hypertension and is a smoker. She is not a candidate for hormonal therapy. Surgeon: Dominique Calderon Anesthesia Type: General (LMA) Operative Notes Findings: 6 wk size anteverted uterus L=4.0 W=3.6 Power = 79 [place]onel Time=1min 48 sec Closure Type: not applicable Specimen(s): none Estimated blood loss (mL): 5 Blood products transfused: none Procedure in detail: After informed consent was obtained, the patient was taken to the operating room where she was placed in the dorsal supine position. After adequate LMA general anesthesia was achieved, she was placed in the dorsal lithotomy position, and prepped and draped in the usual sterile fashion. A time-out was performed. A bivalve speculum was placed into the vagina and the anterior lip of the cervix was grasped with a single-tooth tenaculum. The cervical os was dilated with some difficulty due to 2 prior sections. The single-tooth tenaculum pulled through the anterior lip of the cervix. It was then placed on the posterior lip of the cervix. The remainder of the dilation was achieved. The hysteroscope passed easily into the endometrial cavity. There were no polyps or fibroids. The hysteroscope was removed. The uterus was measured from the internal os to the fundus of the uterus and measured 4.0 cm. This was set on the NovaSure catheter and the generator. The NovaSure catheter passed easily into the endometrial cavity and was opened. The width of the cavity was 3.6 cm. This indicated a power of 79 w. The cervix was capped, the cavity assessment was performed and passed. The cycle was initiated and lasted 1 minute and 48 s econds. At the completion of the cycle the cervix was uncapped, the catheter was closed and removed from the uterus. The single-tooth tenaculum was removed from the posterior lip of the cervix. The laceration on the cervix was repaired with 3-0 chromic with a [id number] suture. Hemostasis was achieved. Sponge, lap, and instrument counts were correct x2. The patient tolerated the procedure well, and was taken to PACU in stable condition. Complications: none Post-operative Condition: stable Disposition: PACU Plan for aftercare: Home after recovery
== END 2023-06-12 09:37 | disposition home or self-care (01) ==
PROVIDERS: PCP Nurse Practitioner; Referring Provider Obstetrics & Gynecology; Visit Provider Obstetrics & Gynecology
PROC: 0U5B8ZZ Destruction of Endometrium, Via Natural or Artificial Opening Endoscopic (ICD-10-PCS; CPT 58563; principal; 2023-06-12 07:45)
DX: N92.0 Excessive and frequent menstruation with regular cycle (principal); I10 Essential (primary) hypertension; F17.210 Nicotine dependence, cigarettes, uncomplicated
CPT/HCPCS: 58563; J1100; J1170; J1885; J2250; J2405; J2704; J3010

== ENCOUNTER → 2023-09-01 16:00 | Outpatient (CLI) | payer OTHER, MEDICAID, SELFPAY ==
--- NOTE | 2023-09-01 16:01 | DI.US.S_ITS ---
PROCEDURE: US PELVIC COMPLETE INDICATIONS: pelvic cramping and pain TECHNIQUE: Real-time scanning was performed of the pelvic organs, with image documentation. Additional endovaginal scanning was necessary due to incomplete visualization of the adnexal and endometrial structures by transabdominal scanning. COMPARISON: [facility], US, PELVIC COMPLETE, 08/16/2016, 14:59. FINDINGS: Uterus: Uterus is anteverted and normal in size at 6.7 x 5.1 x 3.3 cm. The myometrium is heterogeneous. The endometrium measures 13 mm combined thickness. Possible endometrial clot. No fibroids seen. Ovaries: The right ovary measures 2.9 x 1.1 x 1.1 cm, with a calculated ovarian volume of 2 cc. The left ovary measures 2.9 x 2.1 x 1.1 cm, with a calculated ovarian volume of 3 cc. The ovaries have a normal sonographic appearance. Blood flow seen in both ovaries. Less than 12 follicles can be seen in each ovary. No adnexal masses are seen. Other: No pathologic free abdominal or pelvic fluid. IMPRESSION: 1. Endometrium measures 13 mm. Possible endometrial clot. 2. No significant ovarian cysts. We strive to produce accurate, complete, and clear reports of imaging services. To assist us in improving patient care, this report was composed using standard report templates and voice recognition software. Therefore, it may contain abnormal punctuation, insertions and/or omissions. Occasional wrong-word or sound-alike substitutions may occur. Though we review the report and make efforts to correct it, we do recommend that the report be read carefully in proper context to recognize any text inaccuracies. Dictated by: Jovon Van M.D. on 09/01/2023 at 20:47 Approved by: Jovon Van M.D. on 09/01/2023 at 20:50
== END ==
PROVIDERS: PCP Nurse Practitioner; Referring Provider Nurse Practitioner; Visit Provider Nurse Practitioner
DX: R10.2 Pelvic and perineal pain (principal); Z98.890 Other specified postprocedural states
CPT/HCPCS: 76830; 76856

== ENCOUNTER 2023-12-01 07:52 | Day surgery (SDC) | payer OTHER, MEDICAID, SELFPAY ==
[2023-12-01] VITALS (7 sets, daily range): BP systolic 114–150; BP diastolic 74–102; PULSE 84–111; RESP 11–19; TEMP 36.2–37; O2SAT 92–99; BMI 23.3
--- NOTE | 2023-12-01 | PATH_ITS ---
[facility] Accession Number: [id number] No. of containers..01 Tissue . 01 Material submitted: . uterus - UTERUS . 01 Diagnosis: UTERUS, HYSTERECTOMY: Fragmented uterus with scant inactive endometrium and features consistent with prior treatment effect. Histologic features suggestive of focal superficial adenomyosis. No significant cytologic atypia and no malignancy identified. [facility] 12/03/2023 1120 Local . 01 Electronically signed: . Fatoumata Covington MD, Pathologist NPI- [id number] . 01 Gross description: . The specimen is received in formalin labeled with the patient's name, , and uterus, consists of a 40 gram aggregate of pink-monroe morcellated uterine tissue aggregating to 8.5 x 6.9 x 3.2 cm. The serosal surfaces are predominantly pink-monroe and smooth with areas of serosal adhesions noted. Cervical tissue is not identified. A scant amount of red-monroe possible endometrial tissue is noted measuring 0.1 cm in thickness with an underlying myometrium measuring up to 1.0 cm in thickness. The tissue is serially sectioned to reveal no leiomyomatous nodules or other abnormalities. Mail Clerk Bills sections of possible endometrium and underlying myometrium are submitted in cassettes A1-A3. ([id number]) /MRV 12/02/2023 1509 Local . 01 Pathologist provided ICD-10: N99.85, R10.2, Z92.0, N80.00 . 01 CPT . 990591 Specimen Comment: A courtesy copy of this report has been sent to [phone] Performed at: 01 [facility] [address] [place] [address] [address], [place], [place] [id number] MD Carlo Mesa MD Phone: [phone]
[2023-12-01] MEDS: LACTATED RINGERS 1,000 ML 21 ML IV ×2 (08:38→11:10)
--- NOTE | 2023-12-01 09:32 | PM.PREOP ---
Pre-operative Note Interval Note History & Physical reviewed/Exam performed by Physician: Yes Changes to H&P: No H&P completed within 30 days and has changed as indicated here:: 11/28/23
[2023-12-01] MEDS: SCOPOLAMINE 1 PATCH TOP (09:51)
[2023-12-01] MEDS: CEFAZOLIN 2 GM/100 ML PREMIX 100 ML IV (10:38)
--- NOTE | 2023-12-01 10:55 | SUR.OPER ---
Lithotomy on padded OR bed. [place] Pad Positioner under torso. Head on pillow, arms padded and tucked at sides. Legs secured in padded yellow fins stirrups.
[2023-12-01] MEDS: BUPIVACAINE 0.5% (PF) 30 ML, EPINEPHrine 0.15 MG INJ (11:08)
--- NOTE | 2023-12-01 11:33 | PM.GYNOP.1 ---
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 She is having severe pain. She is scheduled for a [facility] Surgeon: Dominique Calderon Commercial Intern: Lily Gutierres Anesthesia Type: General and Local Operative Notes Findings: 8 week size anteverted uterus Fallopian tubes previously removed Normal appendix Normal liver and gallbladder Endometiosis of the anterior cul de sac Closure Type: primary Specimen(s): uterus Applied: catheter (removed at the end of the case) Estimated blood loss (mL): 10 Blood products transfused: none Procedure in detail: The patient was taken to the operating room where she was placed in the dorsal supine position. After adequate general endotracheal anesthesia was achieved, she was placed in the dorsal lithotomy position, and prepped and draped in the usual sterile fashion. A timeout was performed. A bivalve speculum was placed into the vagina and the anterior lip of the cervix grasped with a single-tooth tenaculum. The cervical os was sequentially dilated until the ZUMI uterine manipulator could pass easily into the endometrial cavity. The single-tooth tenaculum was removed from the anterior lip of the cervix, and the bivalve speculum was removed from the vagina. Attention was then turned to the abdomen where 6 mL of half percent Marcaine with epinephrine were injected in the umbilical fold. A 5 mm incision was made. The Verees needle was placed into the peritoneal cavity, and its placement confirmed by aspiration and drop test. The Verees needle was removed. A 5 mm trocar was placed without difficulty. 2 other incisions were made 4 cm lateral to the umbilicus after 5 mL of half percent Marcaine with epinephrine were injected. These were 5 mm incisions. Two 5 mm trocars were placed under direct visualization. The right cornua was grasped with an atraumatic grasper. The utero-ovarian ligaments were cauterized and cut. The round ligament and broad ligament were cauterized and cut with the Powerseal. Hemoostasis was achieved. The bladder flap was created using the Powerseal with cautery and cut [facility] across. The uterine arteries on the right side were extensively cauterized with the Powerseal. All of this was repeated on the left side. The remainder of the bladder flap was created using the Powerseal, and the bladder taken down off the lower uterine segment and cervix. Using the Linaloop, the cervix was amputated from the uterus 2 cm above the uterosacral ligaments, after the ZUMI uterine manipulator was removed from the uterus. There was a small amount of bleeding noted from the posterior edge of the cervix, and this was cauterized for hemostasis. A sponge stick was placed into the vagina. 6 mL of half percent Marcaine with epinephrine were injected above the pubic symphysis. A 12 mm trocar was placed. A large Endobag was placed through the suprapubic trocar and the uterus was placed into the Endobag. The trocar was removed. The edges of the endobag were pulled through the incision. The Anthony placed into the endobag. The uterus was hand morcellated in approximately 5 pieces. The Endobag and Anthony were removed from the peritoneal cavity. The pelvis was copiously irrigated with warm normal saline. No bleeding was noted. Using the spatula cautery, approximately 10 endometriotic lesions were fulgurated in the anterior cul de sac. The instruments were removed from the abdomen. The CO2 was allowed to escape. The suprapubic incision was closed on the fascia with 0 Vicryl. All of the incisions were closed with 4-0 Biosyn in a subcuticular fashion. The moistened sponge stick was removed from the vagina. Sponge, lap, and instrument counts were correct x-2. The patient tolerated the procedure well, was taken to PACU in stable condition. Complications: none Post-operative Condition: stable Disposition: PACU Plan for aftercare: Home after recovery
[2023-12-01] MEDS: ACETAMINOPHEN IV 1,000 MG/100 ML VIAL 400 MG IV (12:07)
== END 2023-12-01 12:58 | disposition home or self-care (01) ==
PROVIDERS: PCP Nurse Practitioner; Referring Provider Obstetrics & Gynecology; Visit Provider Obstetrics & Gynecology
PROC: 0UT94ZL Resection of Uterus, Supracervical, Percutaneous Endoscopic Approach (ICD-10-PCS; CPT 58541; principal; 2023-12-01 09:45)
DX: N99.85 Post endometrial ablation syndrome (principal); R10.2 Pelvic and perineal pain; Z92.0 Personal history of contraception; N80.319 Endometriosis of the anterior cul-de-sac, unspecified depth
CPT/HCPCS: 58541; 58662; J0136; J0171; J0690; J1100; J1170; J1885; J2250; J2405; J2704; J3010; J3490

== ENCOUNTER 2024-04-29 05:19 | Emergency (ER) | payer OTHER, MEDICAID, SELFPAY ==
[2024-04-29 05:29] VITALS: BP 172/108; PULSE 116; RESP 20; TEMP 36.3; O2SAT 99; BMI 23.5
--- NOTE | 2024-04-29 06:05 | ED.FEMALEGU ---
HPI - Female Genitourinary <Liza Ruiz MD - Last Filed: 04/30/24 06:06> General Chief complaint: Urogenital-Female Stated complaint: pelvic pressure from previous surgery Time Seen by Provider: 04/29/24 05:20 Source: patient Mode of arrival: Ambulatory History of Present Illness HPI Narrative: 43-year-old female presents for evaluation of severe pelvic pressure. Patient underwent laparoscopic hysterectomy [address] Calderon. Patient states up until 2-3 days ago she has had improvement in her symptoms. Over the last several days she states she feels like there is a ?head? in her pelvis with severe pressure. Taking Tylenol and ibuprofen at home without relief. Patient's prompted her to seek evaluation in the emergency department today due to the severity of patient's pain. Patient has an upcoming appointment in [address] Campos, however due to the severity of her pain presented to the ER today. Related Data Home Medications Medication Instructions Recorded Confirmed lamotrigine 100 mg tablet 100 mg PO DAILY 01/14/22 12/15/23 cholecalciferol (vitamin D3) 125 125 mcg PO DAILY 04/23/23 12/15/23 mcg (5,000 unit) capsule clonazepam 0.5 mg tablet 0.5 mg PO DAILY PRN anxiety 04/23/23 12/15/23 sertraline 100 mg tablet 200 mg PO DAILY 11/28/23 12/15/23 sertraline 100 mg tablet 200 mg PO DAILY depressive disorder 12/01/23 12/15/23 Previous Rx's Medication Instructions Recorded varenicline 1 mg tablet (Chantix 1 mg PO BID #56 tabs 05/16/23 Continuing Month Box) esomeprazole magnesium 20 mg 20 mg PO BID #30 caps 08/21/23 capsule,delayed release (Nexium 24HR) ibuprofen 600 mg tablet 600 mg PO Q8H PRN pelvic 08/21/23 discomfort #90 tabs pantoprazole 40 mg tablet,delayed 40 mg PO DAILY #30 tabs 09/01/23 release oxycodone 5 mg tablet 5 mg PO Q4H PRN pain #30 tabs 12/01/23 ondansetron 4 mg disintegrating 4 mg PO Q6H PRN for 04/28/24 tablet nausea/vomiting #30 tabs Allergies Allergy/AdvReac Type Severity Reaction Status Date / Time ciprofloxacin [CIPROFLOXACIN] Allergy Intermediate Shakiness Verified 12/15/23 12:19 Penicillins [PENICILLINS] Allergy Unknown Rash Verified 12/15/23 12:19 amoxicillin [AMOXICILLIN] AdvReac Intermediate Rash Verified 12/15/23 12:19 Patient History <Liza Ruiz MD - Last Filed: 04/30/24 06:06> Medical History Gastric reflux Tobacco use disorder Eczema (~1981) Allergies Depression (~2014) Chicken pox Hypertension affecting Other disorder of muscle, ligament, and fascia (08/22/03) Acute lymphadenitis, unspecified (12/01/03) Knee pain (09/13/03) Dermatitis, unspecified (11/09/03) Anxiety state, unspecified (02/02/04) Allergic rhinitis, unspecified (02/02/04) 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) Onychia of toe (02/08/04) Insomnia (01/03/04) Generalized anxiety disorder (01/03/04) Conjunctivitis (10/25/04) Tobacco abuse Anxiety (~2014) PTSD (post-traumatic stress disorder) (~2005) Bipolar disorder (~2014) Surgical History S/P laparoscopic hysterectomy History of section (~2021) Anesthesia History of dilatation and curettage (~2006) History of (~01/05/19) Status post rhinoplasty Family History Father Diabetes mellitus Cardiac arrest due to other underlying condition AMD (age related macular degeneration) Hypertension Prostate cancer History of heart disease Hyperlipidemia Mother Pulmonary emboli Ovarian cancer Hypertension Mental health problem Diabetes mellitus Hyperlipidemia Grandmother Endometrial cancer Grandfather Suicide Grandfather Cancer alcohol intake frequency: holidays/special occasions only Substance Use Type: marijuana Exam <Liza Ruiz MD - Last Filed: 04/30/24 06:06> Initial Vital Signs Initial Vital Signs: Vital Signs Temperature 97.4 F L 04/29/24 05:29 Pulse Rate 116 H 04/29/24 05:29 Respiratory Rate 20 04/29/24 05:29 Blood Pressure 172/108 H 04/29/24 05:29 Pulse Oximetry 99 04/29/24 05:29 Oxygen Delivery Method Room Air 04/29/24 05:29 Const: Awake, alert, uncomfortable, in pain Cardiac: Tachycardia, regular rhythm RESP: unlabored, clear bilaterally, no wheezing GI: Soft, nontender, nondistended : [employer] Inspector present, external genitalia normal, vaginal cuff intact, no obvious prolapse Skin: Warm, Dry, intact, no rashes Neuro: AO x3, CN II-XII grossly intact, moves all extremities <Valdo Encarnacion DO - Last Filed: 04/29/24 08:27> Initial Vital Signs Initial Vital Signs: Vital Signs Temperature 97.4 F L 04/29/24 05:29 Pulse Rate 116 H 04/29/24 05:29 Respiratory Rate 20 04/29/24 05:29 Blood Pressure 172/108 H 04/29/24 05:29 Pulse Oximetry 99 04/29/24 05:29 Oxygen Delivery Method Room Air 04/29/24 05:29 Course <Liza Ruiz MD - Last Filed: 04/30/24 06:06> Orders Ordered: Discontinued Medications Ketorolac Tromethamine (Ketorolac 30 Mg/Ml Vial) 15 mg IV NOW ONE Stop: 04/29/24 06:04 Last Admin: 04/29/24 06:36 Dose: 15 mg Documented By: SERGEY Vital Signs Vital signs: Vital Signs - 8 hr 04/29/24 05:29 Temperature 97.4 F L Pulse Rate 116 H Respiratory Rate 20 Blood Pressure 172/108 H Pulse Oximetry 99 Oxygen Delivery Method Room Air <Valdo Encarnacion DO - Last Filed: 04/29/24 08:27> Orders Ordered: Discontinued Medications Ketorolac Tromethamine (Ketorolac 30 Mg/Ml Vial) 15 mg IV NOW ONE Stop: 04/29/24 06:04 Last Admin: 04/29/24 06:36 Dose: 15 mg Documented By: SERGEY Vital Signs Vital signs: Vital Signs - 8 hr 04/29/24 05:29 Temperature 97.4 F L Pulse Rate 116 H Respiratory Rate 20 Blood Pressure 172/108 H Pulse Oximetry 99 Oxygen Delivery Method Room Air MDM - Female Genitourinary <Liza Ruiz MD - Last Filed: 04/30/24 06:06> Lab Data 07/18/24 06:15 04/29/24 06:15 Labs: Lab Results 04/29/24 Range/Units 06:15 WBC 7.1 (4.5-11.0) X10^3/uL RBC 4.44 (4.0-5.2) X10^6/uL Hgb 13.5 (12.0-16.0) g/dL Hct 39.6 (36-46) % MCV 89.2 (80-100) fL MCH 30.4 (26-34) PG MCHC 34.1 (30-36) % RDW 13.5 (11.6-14.8) % Plt Count 238 (150-400) X10^3/uL Neut % (Auto) 69.4 (50-75) % Lymph % (Auto) 21.8 L (25-40) % George % (Auto) 5.9 (3-14) % Eos % (Auto) 2.0 (2-4) % Baso % (Auto) 0.9 (0-2) % Neut # (Auto) 4900 (6016-1746) /uL Lymph # (Auto) 1500 (9494-7572) /uL George # (Auto) 400 (0-900) /uL Eos # (Auto) 100 (0-450) /uL Baso # (Auto) 100 (0-100) /uL Sodium 139 (137-145) mmol/L Potassium 4.0 (3.4-5.1) mmol/L Chloride 111 H (98-107) mmol/L Carbon Dioxide 24 (22-32) mmol/L BUN 10 (7-17) mg/dL Creatinine 0.64 (0.52-1.04) mg/dL Estimated GFR > 60 (>60) mL/min BUN/Creatinine Ratio 15.6 (6-22) Glucose 98 (70-100) mg/dL Calcium 8.8 (8.4-10.2) mg/dL Total Bilirubin 0.5 (0.2-1.3) mg/dL AST 21 (14-36) IU/L ALT 10 (<35) IU/L Alkaline Phosphatase 51 (38-126) U/L Total Protein 6.8 (6.3-8.2) g/dL Albumin 3.9 (3.5-5.0) g/dL Globulin 2.9 (1.7-4.1) g/dL Albumin/Globulin Ratio 1.3 (1.0-2.8) MDM Narrative Medical decision making narrative: Nontoxic patient with worsening pelvic pressure despite hysterectomy 7 months prior. No obvious abnormalities on physical exam, no obvious prolapse, speculum exam yields no obvious abnormalities. Case discussed with Dr. Franklin of OBGYN. Without any obvious signs of prolapse and history of hysterectomy little utility in obtaining ultrasound at this point. Recommended CT to see if there is any other acute abnormalities that can be identified. Care of patient to be signed out to morning doctor. <Valdo Encarnacion, DO - Last Filed: 04/29/24 08:27> Medical Records Attestation: I reviewed the patient's medical records. Lab Data Attestation: I reviewed the patient's lab results. Labs: Lab Results 04/29/24 Range/Units 06:15 WBC 7.1 (4.5-11.0) X10^3/uL RBC 4.44 (4.0-5.2) X10^6/uL Hgb 13.5 (12.0-16.0) g/dL Hct 39.6 (36-46) % MCV 89.2 (80-100) fL MCH 30.4 (26-34) PG MCHC 34.1 (30-36) % RDW 13.5 (11.6-14.8) % Plt Count 238 (150-400) X10^3/uL Neut % (Auto) 69.4 (50-75) % Lymph % (Auto) 21.8 L (25-40) % George % (Auto) 5.9 (3-14) % Eos % (Auto) 2.0 (2-4) % Baso % (Auto) 0.9 (0-2) % Neut # (Auto) 4900 (3012-8952) /uL Lymph # (Auto) 1500 (7499-8193) /uL George # (Auto) 400 (0-900) /uL Eos # (Auto) 100 (0-450) /uL Baso # (Auto) 100 (0-100) /uL Sodium 139 (137-145) mmol/L Potassium 4.0 (3.4-5.1) mmol/L Chloride 111 H (98-107) mmol/L Carbon Dioxide 24 (22-32) mmol/L BUN 10 (7-17) mg/dL Creatinine 0.64 (0.52-1.04) mg/dL Estimated GFR > 60 (>60) mL/min BUN/Creatinine Ratio 15.6 (6-22) Glucose 98 (70-100) mg/dL Calcium 8.8 (8.4-10.2) mg/dL Total Bilirubin 0.5 (0.2-1.3) mg/dL AST 21 (14-36) IU/L ALT 10 (<35) IU/L Alkaline Phosphatase 51 (38-126) U/L Total Protein 6.8 (6.3-8.2) g/dL Albumin 3.9 (3.5-5.0) g/dL Globulin 2.9 (1.7-4.1) g/dL Albumin/Globulin Ratio 1.3 (1.0-2.8) Imaging Data CT scan - abdomen/pelvis: Radiologist's Impression: PROCEDURE: CT ABDOMEN PELVIS W CON INDICATIONS: SEVERE PELVIC PRESSURE, HX HYSTERECTOMY TECHNIQUE: After the administration of intravenous contrast, axial sections acquired from the lung bases to the pubic symphysis. Coronal and sagittal reformats were performed. For radiation dose reduction, the following was used: automated exposure control, adjustment of mA and/or kV according to patient size. COMPARISON: None. FINDINGS: Image quality: Diagnostic. Lower Chest: No significant findings. ABDOMEN: Liver: No solid mass. Gallbladder: No radiopaque gallstones or wall thickening. Biliary ducts: No biliary dilation. Pancreas: No ductal dilation. Spleen: Size is within normal limits. Adrenal Glands: No adrenal nodules. Kidneys and Ureters: No hydronephrosis. No solid mass. No complex renal cystic lesion which requires follow up. Stomach and Bowel: There is no bowel obstruction. Mild fecal stasis in the colon is seen. No abnormal bowel wall thickening or mesenteric fat stranding. Appendix is visualized and is within normal limits. Peritoneum: Small amount of free fluid in lower pelvis is seen. No abdominal free fluid. No free air. Ventral Wall: No significant ventral hernia. Abdominal Nodes: No retroperitoneal or mesenteric adenopathy by size criteria. Vessels: Aorta and inferior vena cava are normal in size. PELVIS: Pelvic Organs: Patient is status post hysterectomy. 2.8 x 2.7 cm cystic structure within left adnexa is seen likely represent left ovarian cyst. Bladder: No bladder wall thickening, accounting for underdistention. Pelvic Nodes: No enlarged lymph nodes. Miscellaneous: No inguinal hernias are seen. Bones: No aggressive osseous abnormality. IMPRESSION: 1. Mild constipation. No bowel obstruction or abnormal bowel wall thickening. No abscess collection. Normal appendix. 2. Postsurgical changes from hysterectomy. Small amount of free fluid is noted in lower pelvis. Possible left ovarian cyst measures 2.8 x 2.7 cm in size. Pelvic ultrasound can be done for further evaluation if indicated. 3. No significant discrepancies from preliminary reading. [facility] Narrative Medical decision making narrative: Nontoxic patient with worsening pelvic pressure despite hysterectomy 7 months prior. No obvious abnormalities on physical exam, no obvious prolapse, speculum exam yields no obvious abnormalities. Case discussed with Dr. Franklin of OBGYN. Without any obvious signs of prolapse and history of hysterectomy little utility in obtaining ultrasound at this point. Recommended CT to see if there is any other acute abnormalities that can be identified. Care of patient to be signed out to morning doctor. Dr encarnacion: Received turned over. Review patient's history and physical and workup up to this point. Labs are unremarkable. CT scan shows mild constipation but no other acute pathology. Pelvic exam reported by prior provider showed no acute abnormalities. No indication for surgery. No indication for admission to the hospital. Will discharge patient home with return precautions and follow-up with bioinformatics associate. Discharge Plan Departure Patient Disposition: Home Clinical Impression: Pelvic pain Activity Restrictions/Additional Instructions: Continue to take all of your medications as directed. Keep your scheduled appointment with the bioinformatics associate providers on Friday of next week. Use the nausea medication that you have at home for discomfort. You can also take Tylenol/ibuprofen. Return to the emergency department for new symptoms. Prescriptions: No Action lamotrigine 100 mg tablet 100 mg PO DAILY pantoprazole 40 mg tablet,delayed release (DR/EC) 40 mg PO DAILY Qty: 30 1RF Rx Instructions: not taking sertraline 100 mg tablet 200 mg PO DAILY ondansetron 4 mg tablet,disintegrating 4 mg PO Q6H PRN (Reason: for nausea/vomiting) Qty: 30 0RF varenicline [Chantix Continuing Month Box] 1 mg tablet 1 mg PO BID Qty: 56 4RF Rx Instructions: Continue twice daily as tolerated for smoking cessation ibuprofen 600 mg tablet 600 mg PO Q8H PRN (Reason: pelvic discomfort) Qty: 90 2RF esomeprazole magnesium [Nexium 24HR] 20 mg capsule,delayed release(DR/EC) 20 mg PO BID Qty: 30 1RF Rx Instructions: Take twice daily as needed for gastric reflux clonazepam 0.5 mg tablet 0.5 mg PO DAILY PRN (Reason: anxiety) Patient Comments: TAKE 1 TABLET BY MOUTH ONCE DAILY NEEDED FOR ANXIETY cholecalciferol (vitamin D3) 125 mcg (5,000 unit) capsule 125 mcg PO DAILY sertraline 100 mg tablet 200 mg PO DAILY oxycodone 5 mg tablet 5 mg PO Q4H PRN (Reason: pain) Qty: 30 0RF Rx Instructions: Take 1-2 tabs every 4 hours as needed for pain Referrals: Georgina Wiggins ARNP [Primary Care Provider] - Stand Alone Forms: Patient Portal/API
[2024-04-29 06:35] LABS: Add Manual Diff / Slide Review NO; Basophils Absolute Auto 100 /uL (0-100); Basophils Percent Auto 0.9 % (0-2); Eosinophils Absolute Auto 100 /uL (0-450); Hematocrit 39.6 % (36-46); Hemoglobin 13.5 g/dL (12.0-16.0); Lymphocytes Absolute Auto 1500 /uL (1100-4500); Lymphocytes Percent Auto 21.8 % (25-40); Mean Corpuscular HGB Conc 34.1 % (30-36); Mean Corpuscular Hemoglobin 30.4 PG (26-34); Mean Corpuscular Volume 89.2 fL (80-100); Monocytes Absolute Auto 400 /uL (0-900); Monocytes Percent Auto 5.9 % (3-14); Neutrophils Absolute Auto 4900 /uL (1500-7000); Neutrophils Percent Auto 69.4 % (50-75); Platelet Count 238 X10^3/uL (150-400); Red Blood Cell Count 4.44 X10^6/uL (4.0-5.2); Red Cell Distribution Width 13.5 % (11.6-14.8); White Blood Cell Count 7.1 X10^3/uL (4.5-11.0)
[2024-04-29] MEDS: KETOROLAC 30 MG/ML VIAL 15 MG IV (06:36)
--- NOTE | 2024-04-29 06:48 | DI.CT.S_ITS ---
PROCEDURE: CT ABDOMEN PELVIS W CON INDICATIONS: SEVERE PELVIC PRESSURE, HX HYSTERECTOMY TECHNIQUE: After the administration of intravenous contrast, axial sections acquired from the lung bases to the pubic symphysis. Coronal and sagittal reformats were performed. For radiation dose reduction, the following was used: automated exposure control, adjustment of mA and/or kV according to patient size. COMPARISON: None. FINDINGS: Image quality: Diagnostic. Lower Chest: No significant findings. ABDOMEN: Liver: No solid mass. Gallbladder: No radiopaque gallstones or wall thickening. Biliary ducts: No biliary dilation. Pancreas: No ductal dilation. Spleen: Size is within normal limits. Adrenal Glands: No adrenal nodules. Kidneys and Ureters: No hydronephrosis. No solid mass. No complex renal cystic lesion which requires follow up. Stomach and Bowel: There is no bowel obstruction. Mild fecal stasis in the colon is seen. No abnormal bowel wall thickening or mesenteric fat stranding. Appendix is visualized and is within normal limits. Peritoneum: Small amount of free fluid in lower pelvis is seen. No abdominal free fluid. No free air. Ventral Wall: No significant ventral hernia. Abdominal Nodes: No retroperitoneal or mesenteric adenopathy by size criteria. Vessels: Aorta and inferior vena cava are normal in size. PELVIS: Pelvic Organs: Patient is status post hysterectomy. 2.8 x 2.7 cm cystic structure within left adnexa is seen likely represent left ovarian cyst. Bladder: No bladder wall thickening, accounting for underdistention. Pelvic Nodes: No enlarged lymph nodes. Miscellaneous: No inguinal hernias are seen. Bones: No aggressive osseous abnormality. IMPRESSION: 1. Mild constipation. No bowel obstruction or abnormal bowel wall thickening. No abscess collection. Normal appendix. 2. Postsurgical changes from hysterectomy. Small amount of free fluid is noted in lower pelvis. Possible left ovarian cyst measures 2.8 x 2.7 cm in size. Pelvic ultrasound can be done for further evaluation if indicated. 3. No significant discrepancies from preliminary reading. Dictated by: Florencio Evans M.D. on 04/29/2024 at 8:09 Approved by: Florencio Evans M.D. on 04/29/2024 at 8:14
[2024-04-29 06:52] LABS: Alanine Aminotransferase 10 IU/L (<35); Albumin 3.9 g/dL (3.5-5.0); Albumin Globulin Ratio 1.3 (1.0-2.8); Alkaline Phosphatase 51 U/L (38-126); Aspartate Aminotransferase 21 IU/L (14-36); BUN Creatinine Ratio 15.6 (6-22); Bilirubin Total 0.5 mg/dL (0.2-1.3); Blood Urea Nitrogen 10 mg/dL (7-17); Calcium 8.8 mg/dL (8.4-10.2); Carbon Dioxide 24 mmol/L (22-32); Chloride 111 mmol/L (98-107); Estimated Glomerular Filt Rate > 60 mL/min (>60); Globulin 2.9 g/dL (1.7-4.1); Glucose 98 mg/dL (70-100); HEMOLYSIS < 15 (0-50); Sodium 139 mmol/L (137-145); Total Protein 6.8 g/dL (6.3-8.2)
[2024-04-29 08:38] VITALS: BP 192/93; PULSE 79; RESP 16; O2SAT 100
== END 2024-04-29 08:39 | disposition home or self-care (01) ==
PROVIDERS: Emergency Medicine; Emergency Provider Emergency Medicine; PCP Nurse Practitioner
DX: R10.2 Pelvic and perineal pain (principal)
CPT/HCPCS: 36415; 74177; 80053; 85025; 96374; 99284; J1885; Q9967

== ENCOUNTER → 2024-06-02 15:35 | Outpatient (CLI) | payer OTHER, MEDICAID, SELFPAY ==
[2024-06-02 20:12] LABS: Cancer Antigen 125 17.7 U/mL (0-35)
== END ==
PROVIDERS: PCP Family Medicine; Referring Provider Obstetrics & Gynecology; Visit Provider Obstetrics & Gynecology
DX: N83.209 Unspecified ovarian cyst, unspecified side (principal); R10.2 Pelvic and perineal pain; Z80.41 Family history of malignant neoplasm of ovary
CPT/HCPCS: 36415; 86304

== ENCOUNTER 2024-11-22 09:45 | Day surgery (SDC) | payer OTHER, SELFPAY ==
[2024-11-16 08:13] VITALS: BMI 23.5
[2024-11-22] VITALS (7 sets, daily range): BP systolic 120–184; BP diastolic 81–100; PULSE 66–91; RESP 16–20; TEMP 36.2–36.6; O2SAT 92–97; BMI 23.5
--- NOTE | 2024-11-22 | PATH_ITS ---
[facility] Accession Number: [id number] No. of containers..01 Tissue . 01 Material submitted: . fallopian tube - BILATERAL FALLOPIAN TUBES AND BILATERAL OVARIES . 01 Diagnosis: BILATERAL FALLOPIAN TUBES AND BILATERAL OVARIES, BILATERAL LAPAROSCOPIC OOPHORECTOMY: First-described ovary with multiple corpora lutea (up to 13 mm in greatest dimension) and with patchy stromal thecosis and with cystic follicles. No neoplasia identified. Second-described ovary with multiple cystic follicles and corpora albicantia. No neoplasia identified. No endometriosis identified. [facility] 11/25/2024 1331 Local . 01 Electronically signed: . Alexa Andujar MD, Pathologist NPI- [id number] . 01 Gross description: . Received in formalin with two identifiers and bilateral fallopian tubes, bilateral ovaries, are two unoriented ovaries with no tubes identified. The first ovary (12 grams, 3.7 x 3.2 x 2.3 cm) is inked blue, while the second ovary (4 grams, 3.3 x 2.2 x 1.2 cm) is inked green. . . The first ovary has a monroe to violaceous, smooth external surface. Sectioning reveals multiple thin, smooth-walled cystic structures up to 0.4 cm in greatest dimension filled with clear serous fluid. Also identified are multiple orange to hemorrhagic presumed luteal cysts up to 1.3 cm in greatest dimension. The remaining ovarian parenchyma is monroe and unremarkable. . The second ovary is monroe and cerebriform. Sectioning reveals multiple thin, smooth-walled cysts up to 0.5 cm in greatest dimension filled with clear serous fluid. The remaining parenchyma is unremarkable. . Human Resource Officer sections are submitted as follows: A1-A2: First ovary. A3-A4: Second ovary. ([id number]) /SOFIA 11/23/2024 1001 Local . 01 Pathologist provided ICD-10: N80.9, R10.2 . 01 CPT . 428981 Specimen Comment: A courtesy copy of this report has been sent to [phone] Performed at: [address] [facility] [address], [place], [place] [id number] MD Carlo Mesa MD Phone: [phone]
[2024-11-22] MEDS: LACTATED RINGERS 1,000 ML 42 ML IV ×2 (10:44→12:55)
[2024-11-22] MEDS: ACETAMINOPHEN IV 1,000 MG/100 ML VIAL 400 MG IV (10:51)
[2024-11-22] MEDS: SCOPOLAMINE 1 PATCH TOP (10:51)
--- NOTE | 2024-11-22 11:39 | PM.GYNHP.1 ---
History of Present Illness History of Present Illness Reason for admission: pelvic pain Narrative: Griselda Vasquez is a 44 year old female 3 para 2 who presents for a laparoscopic bilateral oophorectomy. Patient has a history of endometriosis and of ovarian cysts. She does understand that taking her ovaries out we will immediately put her into menopause. We will replace with estrogen patch. PENDING SALE TO [facility] Medical History (Updated 11/16/24 @ 08:15 by Yeimi Pace RN) Bipolar disorder GERD (gastroesophageal reflux disease) Gastric reflux Tobacco use disorder Eczema (~1981) Allergies Depression (~2014) Chicken pox Hypertension affecting Other disorder of muscle, ligament, and fascia (08/22/03) Acute lymphadenitis, unspecified (12/01/03) Knee pain (09/13/03) Dermatitis, unspecified (11/09/03) Anxiety state, unspecified (02/02/04) Allergic rhinitis, unspecified (02/02/04) 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) Onychia of toe (02/08/04) Insomnia (01/03/04) Generalized anxiety disorder (01/03/04) Conjunctivitis (10/25/04) Tobacco abuse Anxiety (~2014) PTSD (post-traumatic stress disorder) (~2005) Bipolar disorder (~2014) Surgical History S/P laparoscopic hysterectomy History of section (~2021) Anesthesia History of dilatation and curettage (~2006) History of (~01/05/19) Status post rhinoplasty Family History Father Diabetes mellitus Cardiac arrest due to other underlying condition AMD (age related macular degeneration) Hypertension Prostate cancer History of heart disease Hyperlipidemia Mother Pulmonary emboli Ovarian cancer Hypertension Mental health problem Diabetes mellitus Hyperlipidemia Grandmother Endometrial cancer Grandfather Suicide Grandfather Cancer Social History marital status: unmarried,living together number of children: 1 household members: significant other, family and children lives independently: Yes housing: house pets and animals: Yes (Dogs, fish, frog- Aware Toxoplasmosis) education level: high school occupational status: unemployed current occupational exposures/hazards: No special jesenia needs: No seatbelt use: always water heater temp set < 120 deg: Yes (will check) working smoke detector in home: Yes fire extinguisher in home: Yes carbon monox detector in home: Yes firearms in home: Yes firearms unloaded and locked: Yes do you feel safe at home: Yes Smoking Status: Former smoker second hand exposure: No alcohol intake: current substance use type: former substance user and marijuana during the past year weight has: remained stable well-balanced diet: daily or most days daily servings fruits/ve-4 caffeine: Yes (aware of limit) Type(s) of exercise: irregular exercise Meds Home Medications and Allergies Home Medications Medication Instructions Recorded Confirmed Type lamotrigine 100 mg tablet 100 mg PO DAILY 01/14/22 11/22/24 History cholecalciferol (vitamin D3) 125 125 mcg PO DAILY 04/23/23 11/10/24 History mcg (5,000 unit) capsule clonazepam 0.5 mg tablet 0.5 mg PO DAILY PRN anxiety 04/23/23 11/10/24 History sertraline 100 mg tablet 200 mg PO DAILY depressive disorder 12/01/23 11/10/24 History nicotine 7 mg/24 hr daily 1 patch transdermal Q24H #14 ea 05/13/24 11/10/24 Rx transdermal patch ibuprofen 600 mg tablet 600 mg PO Q8H PRN pelvic 05/20/24 11/10/24 Rx discomfort #90 tabs hydrocodone 5 mg-acetaminophen 325 1 tab PO Q6H PRN pain #20 tabs 11/16/24 Rx mg tablet ondansetron 4 mg disintegrating 4 mg PO Q6H PRN for 11/16/24 Rx tablet nausea/vomiting #30 tabs hydrocodone 7.5 mg-acetaminophen 1 tab PO Q6H PRN pain #20 tabs 11/19/24 11/19/24 Rx 325 mg tablet Allergies Allergy/AdvReac Type Severity Reaction Status Date / Time ciprofloxacin [CIPROFLOXACIN] Allergy Intermediate Shakiness Verified 11/22/24 11:22 Penicillins [PENICILLINS] Allergy Unknown Rash Verified 11/22/24 11:22 amoxicillin [AMOXICILLIN] AdvReac Intermediate Rash Verified 11/22/24 11:22 oxycodone AdvReac Severe Irritable Uncoded 11/22/24 11:22 Exam Vital Signs (past 8 hours): - 11/22/24 11:00 Temperature 97.9 F Pulse Rate 74 Respiratory Rate 16 Blood Pressure 150/94 H Pulse Oximetry 97 Oxygen Delivery Method Room Air Oxygen Delivery Method Room Air Narrative Exam Narrative: HEENT: No thyromegaly, no anterior cervical or supraclavicular lymphadenopathy. Lungs:Clear to auscultation bilaterally, no wheezes. Cardiovascular: Regular rate and rhythm, no murmurs, rubs, or gallops. Abdomen: Well-healed Pfannenstiel and laparoscopy scars. No hepatosplenomegaly. No masses palpable. External genitalia: Normal Vagina: Normal Cervix: Well supported Bimanual exam: Bilateral adnexal tenderness Ext: No edema Assessment & Plan Assessment & Plan narrative: Assessment: 44-year-old 3 para 2 status post laparoscopic supracervical hysterectomy with bilateral salpingectomy Endometriosis found at the time of hysterectomy Persistent pelvic pain Desires removal of both ovaries Plan: Laparoscopic bilateral oophorectomy and treatment of endometriosis The risks, benefits, and alternatives to the procedure were explained to the patient. The risks including bleeding, infection, injury to the bowel, bladder, or ureters. She understands these risks and agrees to proceed. A full par Q was held and consent form was signed. Time-Based Coding :: [TOTAL MINUTES] spent with patient and on the chart (including review of chart, obtaining history, exam, reviewing outside data, placing orders, documenting exam and treatment plan, and counseling patient) on [DATE].
--- NOTE | 2024-11-22 11:45 | PM.PREOP ---
Pre-operative Note Interval Note History & Physical reviewed/Exam performed by Physician: Yes Changes to H&P: No H&P completed within 30 days and has changed as indicated here:: 11/22/24
--- NOTE | 2024-11-22 12:25 | SUR.OPER ---
Lithotomy on padded OR bed. [place] Pad Positioner under torso. Head on pillow, arms padded and tucked at sides. Legs secured in padded yellow fins stirrups.
[2024-11-22] MEDS: ROPIVACAINE 0.2% PF 2 MG/ML 10ML AMP 20 ML INJ (12:54)
--- NOTE | 2024-11-22 13:09 | PM.GYNOP.1 ---
Operative Date/Time/Diagnoses Date of procedure: 11/22/24 Time of procedure: 13:09 Pre-op diagnosis: Pelvic pain History of endometriosis Status post laparoscopic supracervical hysterectomy with bilateral salpingectomy Post-op diagnosis: same Procedure & Clinicians Procedure: Procedures Operation Date: 11/22/24 11:45 Actual Procedure Side Surgeon p Laparoscopic bilateral Salpingo-oophorectomy, and fulgaration of endometriosis Bilateral Dominique Calderon MD Indications: 44-year-old 3 para 2 with continued pelvic pain, recent history of endometriosis at the time of laparoscopic supracervical hysterectomy. History of ovarian cysts. Desires bilateral oophorectomy Surgeon: Dominique Calderon Anesthesia Type: General and Local Operative Notes Findings: Uterus and tubes surgically absent Normal liver and gallbladder Normal appendix Normal ovaries bilaterally Endometriosis of the cervical stump and on the bladder Small amount of free fluid in the cul-de-sac Closure Type: primary Specimen(s): none Estimated blood loss (mL): 5 Blood products transfused: none Procedure in detail: After informed consent was obtained, the patient was taken to the operating room where she was placed in the dorsal supine position. After adequate general endotracheal anesthesia was achieved, she was placed in the dorsal lithotomy position, and prepped and draped in the usual sterile fashion. A time-out was performed. A moistened sponge stick was placed into the vagina. Attention was then turned to the abdomen where 6 cc of 0.5% Marcaine with epinephrine were injected in the umbilical fold and a 5 mm incision was made. The Veress needle was placed into the peritoneal cavity, and its placement confirmed by aspiration and drop test. The abdominal cavity was insufflated with 3.2 L of CO2. The Veress needle was removed, and a 5 mm trocar was placed under visualization. Two other incisions were made 4 cm lateral to the midline through previous laparoscopy incisions after 6 cc of 0.5% Marcaine with epinephrine were injected. These were 5 mm incisions. Two 5 mm trocars were placed under direct visualization. The right ovary was grasped with an atraumatic grasper. Using the power seal, the infundibulopelvic ligament on the right side was cauterized and cut. The ovary was placed into the posterior cul-de-sac. This was repeated on the patient's left side. The appendix, liver, and gallbladder were examined and were found to be normal. There was endometriosis of the peritoneum over the bladder and on the cervical stump. The spatula cautery was used to extensively cauterize these lesions. There were no lesions in the bilateral ovarian fossa. A fourth incision was made through the previous Pfannenstiel incision after 6 cc of 0.5% Marcaine with epinephrine were injected. A 12 mm incision was made. A 12 mm trocar was placed under direct visualization. The large endobag was placed through the suprapubic trocar. Both ovaries were placed into the bag. The trocar was removed and the edges of the bag were brought up through the incision. A Jessi was used to extend the fascia. The ovaries were removed without difficulty. The fascia was closed with 0 Vicryl in a running fashion on the suprapubic incision. The abdomen was re-insufflated with carbon dioxide gas. There was no bleeding noted. The instruments were removed from the abdomen. The CO2 was allowed to escape. The incisions were repaired with 4-0 Monocryl in a subcuticular fashion. Steri-Strips and Allevyn dressings were placed. The moistened sponge stick was removed from the vagina. Sponge, lap, and instrument counts were correct x2. The patient tolerated the procedure well, and was taken to PACU in stable condition. Complications: none Post-operative Condition: stable Disposition: PACU Plan for aftercare: Home after recovery
[2024-11-22] MEDS: TRAMADOL 50 MG TABLET PO (13:44)
--- NOTE | 2024-11-22 14:03 | SUR.PHASEII ---
PT request to leave as soon as she was placed in phase II, reviewed discharge instructions with pt, stated she understood. Information was sent with pt
== END 2024-11-22 14:06 | disposition home or self-care (01) ==
PROVIDERS: PCP Family Medicine; Referring Provider Obstetrics & Gynecology; Visit Provider Obstetrics & Gynecology
PROC: 0UT24ZZ Resection of Bilateral Ovaries, Percutaneous Endoscopic Approach (ICD-10-PCS; CPT 58661; principal; 2024-11-22 11:45)
DX: N80.00 Endometriosis of the uterus, unspecified (principal); N80.A0 Endometriosis of bladder, unspecified depth; Z90.711 Acquired absence of uterus with remaining cervical stump; Z87.42 Personal history of other diseases of the female genital tract; Z90.79 Acquired absence of other genital organ(s)
CPT/HCPCS: 58661; 58662; 81025; J0131; J1100; J1885; J2250; J2405; J2704; J2765; J2795; J3010

== ENCOUNTER 2025-01-05 19:44 | Emergency (ER) | payer OTHER, SELFPAY ==
[2025-01-05 19:54] VITALS: BP 145/94; PULSE 85; RESP 18; TEMP 36.6; O2SAT 97; BMI 24.2
== END 2025-01-05 21:04 | disposition left against medical advice (07) ==
PROVIDERS: Emergency Provider Emergency Medicine; PCP Family Medicine
CPT/HCPCS: 99281

== ENCOUNTER 2025-01-06 02:04 | Emergency (ER) | payer OTHER, SELFPAY ==
[2025-01-06 02:15] VITALS: BP 182/97; PULSE 89; RESP 17; TEMP 37; O2SAT 98; BMI 24.2
--- NOTE | 2025-01-06 02:31 | ED.DENTAL ---
HPI - Dental/Oral General Chief complaint: Dental/Oral Stated complaint: Abscess Tooth Time Seen by Provider: 01/06/25 02:27 Source: patient Mode of arrival: Ambulatory History of Present Illness HPI Narrative: Patient is a 44-year-old female who has history of poor dentition presenting to day with right lower pain and swelling. Reports that she was trying to get into a dentist but really just needs antibiotics. No fever or chills. Pain has been going on for a couple of days. Related Data Home Medications Medication Instructions Recorded Confirmed lamotrigine 100 mg tablet 100 mg PO DAILY 01/14/22 01/06/25 cholecalciferol (vitamin D3) 125 125 mcg PO DAILY 04/23/23 01/06/25 mcg (5,000 unit) capsule clonazepam 0.5 mg tablet 0.5 mg PO DAILY PRN anxiety 04/23/23 01/06/25 sertraline 100 mg tablet 200 mg PO DAILY depressive disorder 12/01/23 11/10/24 Previous Rx's Medication Instructions Recorded ibuprofen 600 mg tablet 600 mg PO Q8H PRN pelvic 05/20/24 discomfort #90 tabs ondansetron 4 mg disintegrating 4 mg PO Q6H PRN for 11/16/24 tablet nausea/vomiting #30 tabs estradiol 0.05 mg/24 hr semiweekly 1 patch transdermal 2XW #8 ea 11/22/24 transdermal patch (Josy) clindamycin HCl 300 mg capsule 300 mg PO QID 10 days #40 caps 01/06/25 ibuprofen 600 mg tablet 600 mg PO Q8H PRN fever or pain 01/06/25 #30 tabs Allergies Allergy/AdvReac Type Severity Reaction Status Date / Time ciprofloxacin [CIPROFLOXACIN] Allergy Intermediate Shakiness Verified 11/22/24 11:22 Penicillins [PENICILLINS] Allergy Unknown Rash Verified 11/22/24 11:22 amoxicillin [AMOXICILLIN] AdvReac Intermediate Rash Verified 11/22/24 11:22 oxycodone AdvReac Severe Irritable Uncoded 11/22/24 11:22 Patient History Medical History Bipolar disorder GERD (gastroesophageal reflux disease) Gastric reflux Tobacco use disorder Eczema (~1981) Allergies Depression (~2014) Chicken pox Hypertension affecting Other disorder of muscle, ligament, and fascia (08/22/03) Acute lymphadenitis, unspecified (12/01/03) Knee pain (09/13/03) Dermatitis, unspecified (11/09/03) Anxiety state, unspecified (02/02/04) Allergic rhinitis, unspecified (02/02/04) 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) Onychia of toe (02/08/04) Insomnia (01/03/04) Generalized anxiety disorder (01/03/04) Conjunctivitis (10/25/04) Tobacco abuse Anxiety (~2014) PTSD (post-traumatic stress disorder) (~2005) Bipolar disorder (~2014) Surgical History S/P laparoscopic hysterectomy History of section (~2021) Anesthesia History of dilatation and curettage (~2006) History of (~01/05/19) Status post rhinoplasty Family History Father Diabetes mellitus Cardiac arrest due to other underlying condition AMD (age related macular degeneration) Hypertension Prostate cancer History of heart disease Hyperlipidemia Mother Pulmonary emboli Ovarian cancer Hypertension Mental health problem Diabetes mellitus Hyperlipidemia Grandmother Endometrial cancer Grandfather Suicide Grandfather Cancer Social History marital status: unmarried,living together number of children: 1 household members: significant other, family and children lives independently: Yes housing: house pets and animals: Yes (Dogs, fish, frog- Aware Toxoplasmosis) education level: high school occupational status: unemployed current occupational exposures/hazards: No special jesenia needs: No seatbelt use: always water heater temp set < 120 deg: Yes (will check) working smoke detector in home: Yes fire extinguisher in home: Yes carbon monox detector in home: Yes firearms in home: Yes firearms unloaded and locked: Yes do you feel safe at home: Yes Smoking Status: Former smoker second hand exposure: No alcohol intake: current substance use type: former substance user and marijuana during the past year weight has: remained stable well-balanced diet: daily or most days daily servings fruits/ve-4 caffeine: Yes (aware of limit) Type(s) of exercise: irregular exercise Smoking Status: Former smoker alcohol intake frequency: holidays/special occasions only Exam Initial Vital Signs Initial Vital Signs: Vital Signs Temperature 98.6 F 01/06/25 02:15 Pulse Rate 89 01/06/25 02:15 Respiratory Rate 17 01/06/25 02:15 Blood Pressure 182/97 H 01/06/25 02:15 Pulse Oximetry 98 01/06/25 02:15 Oxygen Delivery Method Room Air 01/06/25 02:15 GENERAL: Well-appearing, well-nourished and in no acute distress. MOUTH: Right lower jaw swelling no erythema no trismus overall poor dentition through mouth no obvious dental abscess CARDIOVASCULAR: peripheral pulses in tact, cap refill <2 sec RESPIRATORY: No respiratory distress, speaks in full sentences without difficulty EXTREMITIES: Normal range of motion, no clubbing or edema. Neurovascularly intact NEUROLOGICAL: Cranial nerves II through XII grossly intact. Normal gait and speech. SKIN: Warm, dry, no petechiae, no rashes or lesions. Course Vital Signs Vital signs: Vital Signs - 8 hr 01/06/25 02:15 Temperature 98.6 F Pulse Rate 89 Respiratory Rate 17 Blood Pressure 182/97 H Pulse Oximetry 98 Oxygen Delivery Method Room Air MDM - Dental/Oral MDM Narrative Medical decision making narrative: Patient 44-year-old female with poor dentition presenting today with swelling and pain. She was trying to get into a dentist. The allergic to penicillin given clindamycin and Motrin here. She says that has worked in the past. No evidence of dental abscess vitals are stable. Discharge Plan Departure Patient Disposition: Home Clinical Impression: Pain, dental Instructions: Tooth Abscess Activity Restrictions/Additional Instructions: *You have been diagnosed with dental pain sensory *What to do: At this time may try ice or heat he will definitely need to see a dentist *Continue to take medications as directed--> [facility] Clindamycin 300 mg 4 times a day for 10 days Motrin 600 mg every 6 hours for [id number] pain *Follow up with your primary care provider in 2-3 days or call [phone] *Return to ER if you should have increasing pain swelling redness fever difficulty swallowing or any new, worsening or concerning symptoms Prescriptions: New clindamycin HCl 300 mg capsule 300 mg PO QID 10 Days Qty: 40 0RF ibuprofen 600 mg tablet 600 mg PO Q8H PRN (Reason: fever or pain) Qty: 30 0RF No Action lamotrigine 100 mg tablet 100 mg PO DAILY ibuprofen 600 mg tablet 600 mg PO Q8H PRN (Reason: pelvic discomfort) Qty: 90 0RF ondansetron 4 mg tablet,disintegrating 4 mg PO Q6H PRN (Reason: for nausea/vomiting) Qty: 30 1RF clonazepam 0.5 mg tablet 0.5 mg PO DAILY PRN (Reason: anxiety) Patient Comments: TAKE 1 TABLET BY MOUTH ONCE DAILY NEEDED FOR ANXIETY cholecalciferol (vitamin D3) 125 mcg (5,000 unit) capsule 125 mcg PO DAILY estradiol [Josy] 0.05 mg/24 hr patch semiweekly 1 patch transdermal 2XW Qty: 8 11RF Rx Instructions: apply 1 patch on lower abdomen or hip twice a week sertraline 100 mg tablet 200 mg PO DAILY Referrals: Laxmi Xavier MD [Primary Care Provider] - Stand Alone Forms: Patient Portal/API/Survey
[2025-01-06] MEDS: IBUPROFEN 400 MG TABLET 800 MG PO (02:42)
[2025-01-06] MEDS: CLINDAMYCIN 150 MG CAPSULE 300 MG PO (02:42)
== END 2025-01-06 03:02 | disposition home or self-care (01) ==
PROVIDERS: Emergency Provider Emergency Medicine; PCP Family Medicine
DX: K08.89 Other specified disorders of teeth and supporting structures (principal)
CPT/HCPCS: 99283